=== PATIENT | male | born 1940 | race Hispanic/Latino ===

== ENCOUNTER 2019-12-31 17:28 | Inpatient (IN) | payer MEDICARE ==
[~2019-12-31] VITALS: Ht 175.3 cm; Wt 62.1 kg
[~2019-12-31 17:28] MED LIST: ASA81 MG PO; LISINOPRIL-HCT1 EAC3 PO; NITROGLYCERIN; NORCO1 EA PO; Z.0.CLINDAMYCIN HC15; Z.0.DOXEPIN HCL25 MG; Z.0.DOXEPIN HCL25 MG PO; Z.0.GLIMEPIRIDE2 MG PO; Z.0.LOVASTATIN20 MG PO; Z.0.METOPROLOL SUCC2 PO; Z.0.NORCO 10-325 T1; Z.0.PLAVIX75 MG PO
[2019-12-31] MEDS ORDERED: SODIUM CHLORIDE 0.9% 1000ML 1,000 ML IV STA (17:46)
[2019-12-31] MEDS ORDERED: ACETAMINOPHEN 325 MG TAB PO NR (18:00)
[2019-12-31] MEDS ORDERED: CEFTRIAXONE SOD 1 GM/NS 50 ML 50 ML IV ONE (18:00)
[2019-12-31] MEDS ORDERED: ONDANSETRON HCL INJ 2MG/ML 2ML 2 MG/ML VIAL IV NR (18:00)
[2019-12-31] MEDS ORDERED: AZITHROMYCIN 500MG/NS 250 ML 250 ML IV NR (18:00)
[2019-12-31] MEDS: DILTIAZEM HCL 5 MG/ML 5 ML VIAL IV NR ×2 (18:04→18:27)
[2019-12-31 18:05] LABS: BASOPHILS % 0.8 % (0.0-1.0); EOSINOPHILS % 0.8 % (0.0-6.0); HEMOGLOBIN 11.2 g/dL (14.0-18.0); LYMPHOCYTES # (AUTO) 0.7 (1.0-3.2); MEAN CORPUSCULAR HEMOGLOBIN 25.5 pg (28-32); MEAN CORPUSCULAR HGB CONC 32.9 g/dL (31-35); MEAN CORPUSCULAR VOLUME 77.4 fL (81-99); MONOCYTES # (AUTO) 0.6 (0.2-0.8); MONOCYTES % 14.7 % (4.4-11.3); NEUTROPHILS # (AUTO) 2.6 (2.1-6.9); NEUTROPHILS % 65.4 % (38.7-80.0); PLATELET COUNT 299 x10e3/uL (140-360); RED BLOOD COUNT 4.39 x10e6/uL (4.3-5.7); RED CELL DISTRIBUTION WIDTH 14.7 % (11.7-14.4)
[2019-12-31 18:26] LABS: ALANINE AMINOTRANSFERASE 119 IU/L (0-55); ALBUMIN 3.8 g/dL (3.5-5.0); ALBUMIN/GLOBULIN RATIO 1.1 (0.8-2.0); ALKALINE PHOSPHATASE 79 IU/L (40-150); BLOOD UREA NITROGEN 9 mg/dL (7-26); BUN/CREATININE RATIO 10 (6-25); CALCIUM 8.8 mg/dL (8.4-10.2); CARBON DIOXIDE 19 mmol/L (22-29); CHLORIDE 91 mmol/L (98-107); CREATINE KINASE 148 IU/L (30-200); CREATININE, SERUM 0.91 mg/dL (0.72-1.25); EST GLOMERULAR FILTRATION RATE > 60 ML/MIN (60-); GLUCOSE 125 mg/dL (74-118); SODIUM 121 mmol/L (136-145)
--- NOTE | 2019-12-31 18:29 | Diagnostic Imaging Report ---
EXAMINATION: CHEST SINGLE (PORTABLE) INDICATION: Flulike symptom. ^ERMD ORDER ^Y COMPARISON: None FINDINGS: TUBES and LINES: None. LUNGS: Perihilar peribronchial hazy opacity could be due to bronchitis. No consolidative pneumonia. PLEURA: No pleural effusion or pneumothorax. HEART AND MEDIASTINUM: The cardiomediastinal silhouette is unremarkable. BONES AND SOFT TISSUES: No acute osseous lesion. Soft tissues are unremarkable. UPPER ABDOMEN: No free air under the diaphragm. IMPRESSION: Perihilar peribronchial hazy opacity could be due to bronchitis. No consolidative pneumonia. Signed by: Dr. Troy Mcleod M.D. on 12/31/2019 6:26 PM
[2019-12-31 18:34] LABS: B-TYPE NATRIURETIC PEPTIDE2 353.4 pg/mL (0-100)
[2019-12-31] MEDS ORDERED: DILTIAZEM HCL 5 MG/ML 5 ML VIAL IV NR (18:45)
[2019-12-31] MEDS ORDERED: AMIODARONE HCL 360MG 200 ML IV SCH (19:00)
[2019-12-31] MEDS ORDERED: AMIODARONE HCL 150MG 100 ML IV NR (19:00)
[2019-12-31] MEDS ORDERED: AMIODARONE HCL 900 MG in DEXTROSE 5 % 500ML BOTTLE 500 ML IV ONE (19:00)
[2019-12-31] MEDS ORDERED: ONDANSETRON HCL INJ 2MG/ML 2ML 2 MG/ML VIAL IV PRN (20:00)
[2019-12-31] MEDS ORDERED: SODIUM CHLORIDE FLUSH 10 ML SYR INJ PRN (20:00)
[2019-12-31] MEDS: CEFTRIAXONE SOD 1 GM/NS 50 ML 50 ML IV SCH (20:23)
[2019-12-31] MEDS ORDERED: SODIUM CHLORIDE 0.9% 1000ML 1,000 ML IV ONE (20:45)
[2019-12-31] MEDS: AZITHROMYCIN 500MG/NS 250 ML 250 ML IV SCH (21:30)
[2019-12-31] MEDS ORDERED: DEXTROSE 50% SYRINGE 50 ML IV PRN (22:15)
[2019-12-31] MEDS: OSELTAMIVIR PHOSPHATE 75 MG CAP PO SCH (22:35)
[2019-12-31 23:27] VITALS: BP 120/72
--- NOTE | 2019-12-31 23:37 | NUR ---
patient came from ER awake alert oriented. no distress noted, vitals checked. Amiodarone running through iV left AC. nurse put another IV line to left Forearm size 20 g for Iv fluids, patient tolerated well. blood sugar checked its 120 at this time. on bed side. bed alarm is on, he has history of fall at home today due to weakness feeling. noted skin tear to left upper arm and its wrapped with elastic dressing from ER. will continue to monitor.
[2019-12-31 23:40] VITALS: BP 120/72
[2020-01-01] VITALS (27 sets, daily range): BP systolic 86–197; BP diastolic 32–121
[2020-01-01] MEDS ORDERED: AMIODARONE HCL 360MG 200 ML IV SCH
--- NOTE | 2020-01-01 01:45 | NUR ---
amiodarone drip adjusted to 16cc/hr (after 6 hr from it started) as ordered.
--- NOTE | 2020-01-01 01:56 | NUR ---
draw blood for cardiac markers, and sent sample to lab.
[2020-01-01 02:38] LABS: CREATINE KINASE MB 3.3 ng/mL (0-5.0)
[2020-01-01 04:41] LABS: BASOPHILS % 0.5 % (0.0-1.0); EOSINOPHILS % 0.3 % (0.0-6.0); HEMATOCRIT 32.5 % (38.2-49.6); HEMOGLOBIN 10.5 g/dL (14.0-18.0); LYMPHOCYTES % 25.6 % (18.0-39.1); MEAN CORPUSCULAR HEMOGLOBIN 25.4 pg (28-32); MEAN CORPUSCULAR HGB CONC 32.3 g/dL (31-35); MEAN CORPUSCULAR VOLUME 78.5 fL (81-99); MONOCYTES # (AUTO) 0.7 (0.2-0.8); MONOCYTES % 16.3 % (4.4-11.3); NEUTROPHILS # (AUTO) 2.3 (2.1-6.9); NEUTROPHILS % 56.8 % (38.7-80.0); PLATELET COUNT 291 x10e3/uL (140-360); RED BLOOD COUNT 4.14 x10e6/uL (4.3-5.7); RED CELL DISTRIBUTION WIDTH 14.9 % (11.7-14.4)
[2020-01-01 05:04] LABS: ALANINE AMINOTRANSFERASE 96 IU/L (0-55); ALKALINE PHOSPHATASE 63 IU/L (40-150); ANION GAP 13.2 mmol/L (8-16); BLOOD UREA NITROGEN 8 mg/dL (7-26); BUN/CREATININE RATIO 10 (6-25); CARBON DIOXIDE 22 mmol/L (22-29); CHLORIDE 98 mmol/L (98-107); CHOL/HDL RATIO 2.6 (3.9-4.7); CHOLESTEROL 100 MD/DL (0-199); CREATININE, SERUM 0.83 mg/dL (0.72-1.25); EST GLOMERULAR FILTRATION RATE > 60 ML/MIN (60-); GLUCOSE 130 mg/dL (74-118); HDL CHOLESTEROL 38 MG/DL (40-60); LDL CHOLESTEROL 47 MG/DL (60-130); POTASSIUM 4.2 mmol/L (3.5-5.1); TRIGLYCERIDES 74 MG/DL (0-149)
[2020-01-01 05:20] LABS: SODIUM 129 mmol/L (136-145)
[2020-01-01] MEDS: HYDROCODONE/APAP 10MG-325MG TAB PO PRN ×2 (05:27→09:35)
[2020-01-01] MEDS ORDERED: HYDROCODONE/APAP 10MG-325MG TAB ONE (05:30)
[2020-01-01] MEDS: CLONIDINE HCL 0.1 MG TAB PO PRN (06:37)
[2020-01-01] MEDS: METOPROLOL SUCCINATE 25 MG TAB XL PO SCH ×2 (08:03→16:31)
[2020-01-01] MEDS: OSELTAMIVIR PHOSPHATE 75 MG CAP PO SCH ×2 (08:03→16:30)
[2020-01-01] MEDS: CLOPIDOGREL BISULFATE 75 MG TAB PO SCH (08:03)
[2020-01-01] MEDS: INSULIN REGULAR, HUMAN 100 UNIT/1 ML 3ML VIAL SQ SCH ×4 (08:05→21:26)
[2020-01-01] MEDS: BACITRACIN/POLYMYXIN 30 GM OINT TP SCH (09:00)
[2020-01-01 12:24] LABS: CREATINE KINASE MB 2.3 ng/mL (0-5.0)
--- NOTE | 2020-01-01 13:23 | NUR ---
WOUND CARE CONSULT FOR TREATMENT RECOMMENDATIONS FOR RIGHT ARM SKIN TEAR MEASURING 6CM X4CM X.1CM LOOSE SKIN MOISTENED WITH SALINE AND SPREAD OVER 90% OF WOUND BED SECURED WITH SKIN ADHESIVE AND TEGADERM RECOMMEND LEAVING TEGADERM IN PLACE FOR SKIN READHERENCE Addendum: 01/01/20 at 1328 by Vimal Charles RN Amended: Links added.
[2020-01-01] MEDS: AMIODARONE HCL 200 MG TAB PO SCH (16:30)
[2020-01-01] MEDS: AZITHROMYCIN 500MG/NS 250 ML 250 ML IV SCH (19:54)
[2020-01-01] MEDS: CEFTRIAXONE SOD 1 GM/NS 50 ML 50 ML IV SCH (19:54)
[2020-01-02] VITALS (17 sets, daily range): BP systolic 122–190; BP diastolic 52–107
--- NOTE | 2020-01-02 00:12 | Consultation ---
DATE OF CONSULTATION: 01/01/2020 Cardiology Consultation HISTORY OF PRESENT ILLNESS: This is a 79-year-old man with a history of peripheral arterial disease with amputation, carotid artery disease, status post endarterectomy, coronary artery disease, gastroesophageal reflux disease, hypertension, hyperlipidemia, who presented to the emergency department with fever, cough, weakness, dizziness, and fall. The patient was found to have influenza and atrial fibrillation with rapid ventricular response. The patient has no prior history of atrial fibrillation. REVIEW OF SYSTEMS: A 12-point review of system was conducted, is negative except as stated above in the HPI. PAST MEDICAL HISTORY: As stated above in the HPI. PAST SURGICAL HISTORY: Amputation, carotid endarterectomy. PAST FAMILY HISTORY: Noncontributory to present illness. SOCIAL HISTORY: Tobacco use. ALLERGIES: SULFA AND HYDROMORPHONE. MEDICATIONS: See medication reconciliation form. PHYSICAL EXAMINATION: VITAL SIGNS: Temperature is 98.2, heart rate is 60, respirations are 22, blood pressure is 137/68, ox saturation 100% on room air. GENERAL: Well-appearing, well-built, no apparent distress, alert, oriented x3. HEAD: Normocephalic, atraumatic. EYES: Extraocular muscles are intact. Conjunctivae clear. NECK: No JVD. No bruits. CARDIOVASCULAR: Regular rate and rhythm. No murmurs. LUNGS: Clear to auscultation. ABDOMEN: Soft, nontender, nondistended. EXTREMITIES: No clubbing, cyanosis or edema. VASCULAR: 2+ pulses. SKIN: Warm, dry and intact. NEUROLOGIC: No focal deficits noted. LABORATORY DATA: Reviewed. He is positive for influenza A. Creatinine is 0.83. Sodium 129, potassium 4.2, AST 71, ALT is 96. Troponins negative x4. BNP is 354. A 12-lead electrocardiogram showed atrial fibrillation with rapid ventricular response with nonspecific ST-T wave abnormalities. Chest x-ray showed perihilar and peribronchial hazy opacities due to bronchitis. IMPRESSION: 1. Influenza. 2. Atrial fibrillation with right ventricular response, currently in normal sinus rhythm. 3. Hypertension. 4. Hyperlipidemia. 5. Peripheral artery disease. 6. Coronary artery disease. RECOMMENDATIONS: The patient has converted to normal sinus rhythm with amiodarone infusion. We will car changer to oral amiodarone to 200 mg p.o. b.i.d. Continue metoprolol succinate 25 mg b.i.d. for rate control as well. He is on clopidogrel. The patient states he has bleeding episodes. Would warrant anticoagulation. We will rediscuss with family and primary team. We will check a 2D echocardiogram. Continue to monitor his laboratory values. DO SEBASTIEN Mcfarlane/EDUARDO /[id number]
[2020-01-02] MEDS ORDERED: LEVALBUTEROL HCL SOLN NEBU 0.63 MG/3 ML NEB INH PRN (04:00)
--- NOTE | 2020-01-02 06:22 | NUR ---
around 0300 PT c/o SOB, desaturating as low as 85%, placed pt on weinberg mask, notified MD. Pop ordered. Oxygen sat came up to 97%, pt denies any SOB. stable will continue to monitor
[2020-01-02] MEDS: INSULIN REGULAR, HUMAN 100 UNIT/1 ML 3ML VIAL SQ SCH ×4 (07:36→20:40)
[2020-01-02] MEDS: OSELTAMIVIR PHOSPHATE 75 MG CAP PO SCH ×2 (08:15→16:32)
[2020-01-02] MEDS: AMIODARONE HCL 200 MG TAB PO SCH ×2 (08:15→16:32)
[2020-01-02] MEDS: CLOPIDOGREL BISULFATE 75 MG TAB PO SCH (08:15)
[2020-01-02] MEDS: BACITRACIN/POLYMYXIN 30 GM OINT TP SCH (08:15)
[2020-01-02] MEDS: METOPROLOL SUCCINATE 25 MG TAB XL PO SCH ×2 (08:15→18:00)
[2020-01-02 09:17] LABS: BASOPHILS % 0.5 % (0.0-1.0); EOSINOPHILS % 0.3 % (0.0-6.0); HEMATOCRIT 32.8 % (38.2-49.6); HEMOGLOBIN 10.5 g/dL (14.0-18.0); LYMPHOCYTES # (AUTO) 0.8 (1.0-3.2); LYMPHOCYTES % 21.2 % (18.0-39.1); MEAN CORPUSCULAR HEMOGLOBIN 25.7 pg (28-32); MEAN CORPUSCULAR VOLUME 80.4 fL (81-99); MONOCYTES # (AUTO) 0.4 (0.2-0.8); MONOCYTES % 9.4 % (4.4-11.3); NEUTROPHILS # (AUTO) 2.6 (2.1-6.9); NEUTROPHILS % 67.8 % (38.7-80.0); PLATELET COUNT 264 x10e3/uL (140-360); RED BLOOD COUNT 4.08 x10e6/uL (4.3-5.7); RED CELL DISTRIBUTION WIDTH 15.1 % (11.7-14.4)
[2020-01-02 09:38] LABS: ANION GAP 14.2 mmol/L (8-16); BLOOD UREA NITROGEN 10 mg/dL (7-26); BUN/CREATININE RATIO 11 (6-25); CARBON DIOXIDE 20 mmol/L (22-29); CHLORIDE 95 mmol/L (98-107); CREATININE, SERUM 0.95 mg/dL (0.72-1.25); EST GLOMERULAR FILTRATION RATE > 60 ML/MIN (60-); GLUCOSE 229 mg/dL (74-118); POTASSIUM 4.2 mmol/L (3.5-5.1); SODIUM 125 mmol/L (136-145)
[2020-01-02] MEDS: CLONIDINE HCL 0.1 MG TAB PO PRN (09:43)
--- NOTE | 2020-01-02 09:48 | Progress Note ---
DATE: 01/02/2020 SUBJECTIVE: The patient is a 79-year-old gentleman who came in with atrial fibrillation with rapid ventricular response, flu, bronchitis. The patient is currently off his amiodarone drip, he is on amiodarone p.o. He is on the last Tamiflu. Currently, wants to get out of bed. No chest pain. No shortness of breath. He did have some desats yesterday. Xopenex was started. The patient is currently feeling better and wants to get out of bed again. PHYSICAL EXAMINATION: VITAL SIGNS: Temperature 98.0, pulse of 64, respirations of 22, blood pressure is 179/69, pulse oximetry of 95%. HEENT: Normocephalic and atraumatic. Pupils are reactive to light and accommodation. CVS: S1 and S2 normal. ABDOMEN: Nontender. LUNGS: Decreased air entry in all lung velez. Positive for inspiratory wheezes. EXTREMITIES: Left AKA, the patient has decreased pulses on the right lower extremity. MEDICATIONS: 1. Insulin. 2. . 3. Azithromycin. 4. Ceftriaxone. 5. Metoprolol twice a day. 6. Amiodarone twice a day. 7. Tamiflu 75 mg twice a day. 8. Zofran 4 mg as needed. 9. Hydrocodone as needed. 10. Clonidine 0.1 mg as needed. LABORATORY VALUES: The patient's white count yesterday was 3.98. Chemistries; glucose is running 112. Troponins have been trended to be negative. The patient's last sodium was 129. We will go ahead and recheck that today. ASSESSMENT: 1. Flu, bronchitis. 2. Atrial fibrillation with RVR. 3. Hyponatremia. 4. History of peripheral artery disease. 5. History of hypertension. 6. History of diabetes mellitus. 7. The patient also has leukopenia. PLAN: Continue with amiodarone. The patient will be assisted with physical therapy for rehabilitation. Xopenex treatment. Continue monitoring telemetry. The patient can be switched from ICU to IMCU. Further recommendation per clinical course. We will continue to monitor the patient. Lab values will be repeated again. MD YAMINI Jimenez/MODL /[id number]
[2020-01-02] MEDS: SODIUM CHLORIDE 1 GM TAB PO SCH ×2 (10:58→16:32)
[2020-01-02] MEDS: POLYETHYLENE GLYCOL 3350 17 GM PACK PO SCH (16:32)
--- NOTE | 2020-01-02 18:04 | NUR ---
Per Dr. José orders given to transfer pt to [facility] with telemetry, and ordered PT favian. informed of patient's low sodium. Orders given. informed that patient's family reports lack of bowel movement for a week, per pt he does not recall when last bowel movement was. Orders given. Physical therapy worked with patient, now currently pt is sitting in chair. Will continue to monitor.
[2020-01-02] MEDS: AZITHROMYCIN 500MG/NS 250 ML 250 ML IV SCH (20:09)
[2020-01-02] MEDS: CEFTRIAXONE SOD 1 GM/NS 50 ML 50 ML IV SCH (20:09)
[2020-01-03] VITALS (9 sets, daily range): BP systolic 118–175; BP diastolic 55–97
[2020-01-03] MEDS: CLONIDINE HCL 0.1 MG TAB PO PRN ×2 (00:18→21:13)
[2020-01-03 05:47] LABS: ANION GAP 12.1 mmol/L (8-16); BLOOD UREA NITROGEN 10 mg/dL (7-26); BUN/CREATININE RATIO 12 (6-25); CALCIUM 7.8 mg/dL (8.4-10.2); CARBON DIOXIDE 20 mmol/L (22-29); CHLORIDE 100 mmol/L (98-107); CREATININE, SERUM 0.81 mg/dL (0.72-1.25); EST GLOMERULAR FILTRATION RATE > 60 ML/MIN (60-); GLUCOSE 106 mg/dL (74-118); POTASSIUM 4.1 mmol/L (3.5-5.1); SODIUM 128 mmol/L (136-145)
[2020-01-03] MEDS: INSULIN REGULAR, HUMAN 100 UNIT/1 ML 3ML VIAL SQ SCH ×4 (07:30→20:44)
[2020-01-03] MEDS: CLOPIDOGREL BISULFATE 75 MG TAB PO SCH (08:04)
[2020-01-03] MEDS: OSELTAMIVIR PHOSPHATE 75 MG CAP PO SCH ×2 (08:04→17:00)
[2020-01-03] MEDS: POLYETHYLENE GLYCOL 3350 17 GM PACK PO SCH (08:04)
[2020-01-03] MEDS: AMIODARONE HCL 200 MG TAB PO SCH ×2 (08:04→17:29)
[2020-01-03] MEDS: METOPROLOL SUCCINATE 25 MG TAB XL PO SCH ×2 (08:04→17:29)
[2020-01-03] MEDS: SODIUM CHLORIDE 1 GM TAB PO SCH ×2 (08:04→17:29)
[2020-01-03] MEDS: BACITRACIN/POLYMYXIN 30 GM OINT TP SCH (08:05)
--- NOTE | 2020-01-03 11:18 | Progress Note ---
DATE: 01/03/2020 SUBJECTIVE: A 79-year-old male, who came in with atrial fibrillation with RVR, bronchitis, influenza A pneumonia. The patient is currently feeling better and wants to go home. No chest pain. No shortness of breath. Yesterday, the patient's sodium was 125. Salt tablets were given. OBJECTIVE: VITAL SIGNS: Temperature is 98.1, T-max at 01/03/2020 was 99.2, pulse of 66, respirations of 22, pulse ox of 99%. HEENT: Normocephalic and atraumatic. Pupils are reactive to light and accommodation. CVS: S1 and S2 normal. Regular rate and rhythm. ABDOMEN: Nontender, nondistended. EXTREMITIES: No clubbing, no cyanosis, and/or no edema. The patient has a right AKA. LABORATORY DATA: Sodium is 128 this morning. ASSESSMENT: 1. Flu bronchitis. 2. Atrial fibrillation with rapid ventricular rate. 3. Hyponatremia. 4. History of peripheral artery disease. 5. History of hypertension and diabetes mellitus and leukopenia. Again, the patient's white count yesterday was 3.82, and chemistry showed a sodium of 128. PLAN: Move to Med/Surg. Continue monitoring the patient. Medicines reviewed. Further recommendation per clinical course. Continue with telemonitoring. MD YAMINI Jimenez/ALLIL /[id number]
--- NOTE | 2020-01-03 12:00 | NUR ---
Pt transferred to medical surgical room 295 with telemetry. Report given to Edwin MARTINEZ. Pt does not appear to be in any distress at this time.
--- NOTE | 2020-01-03 13:01 | NUR ---
PATIENT RECEIVED FROM ICU PER WHEEL CHAIR. ALERT AND VERBALLY RESPONSIVE. DENIED PAIN AT THIS TIME. TELEMETRY B[address] ON ISOLATION FOR FLU. IN BED WITH CALL LIGHT AT REACH.
--- NOTE | 2020-01-03 15:34 | NUR ---
PATIENT IN BED RESTING WITH NO S/S OF DISTRESS. ALL PERSONAL ITEMS CLOSE TO PATIENT. CALL LIGHT AT REACH.
[2020-01-03] MEDS ORDERED: SODIUM CHLORIDE 0.9% 250ML 250 ML ONE (19:16)
[2020-01-03] MEDS: CEFTRIAXONE SOD 1 GM/NS 50 ML 50 ML IV SCH (19:59)
[2020-01-03] MEDS: AZITHROMYCIN 500MG/NS 250 ML 250 ML IV SCH (20:37)
--- NOTE | 2020-01-04 00:40 | Progress Note ---
DATE: 01/03/2020 Cardiology Progress Note SUBJECTIVE: No major events overnight. OBJECTIVE: VITAL SIGNS: Temperature afebrile, pulse 62, respiratory rate 18, blood pressure 175/70, saturating 95% on 2 L nasal cannula. GENERAL: Elderly man, well developed, well nourished, no acute distress. CARDIOVASCULAR: Regular rate and rhythm. No murmurs, rubs, or gallops. LUNGS: Clear to auscultation anteriorly. ABDOMEN: Soft, nontender, nondistended. NEURO AND PSYCH: Alert and oriented to person, place, and time. Normal affect. EXTREMITIES: Warm and well perfused. No ulcerations. No edema. INPATIENT MEDICATIONS: Reviewed. LABORATORY DATA: Reviewed. TELEMETRY DATA: Reviewed, shows normal sinus rhythm. Telemetry has been discontinued as of today. ASSESSMENT AND PLAN: 1. Influenza. 2. Atrial fibrillation with rapid ventricular response, currently back in normal sinus rhythm. 3. Hypertension. 4. Hyperlipidemia. 5. Peripheral arterial disease. 6. Coronary artery disease. RECOMMENDATION: The patient is now converted to sinus rhythm with IV amiodarone converted to p.o. amiodarone. Continue metoprolol 25 mg. Echocardiogram final results are pending. The patient will need therapeutic anticoagulation for atrial fibrillation. Recommend apixaban 2.5 mg b.i.d. No acute bleeding issues. Thank you for this consult. We will continue to follow. MD LEONCIO EscamillaP/MODL /[id number]
[2020-01-04 04:12] VITALS: BP 150/67
[2020-01-04 06:49] LABS: ALANINE AMINOTRANSFERASE 52 IU/L (0-55); ALBUMIN 2.8 g/dL (3.5-5.0); ALBUMIN/GLOBULIN RATIO 0.9 (0.8-2.0); ALKALINE PHOSPHATASE 55 IU/L (40-150); ANION GAP 13.4 mmol/L (8-16); BLOOD UREA NITROGEN 8 mg/dL (7-26); BUN/CREATININE RATIO 10 (6-25); CALCIUM 7.8 mg/dL (8.4-10.2); CARBON DIOXIDE 21 mmol/L (22-29); CHLORIDE 100 mmol/L (98-107); CREATININE, SERUM 0.77 mg/dL (0.72-1.25); EST GLOMERULAR FILTRATION RATE > 60 ML/MIN (60-); GLUCOSE 91 mg/dL (74-118); MAGNESIUM 1.9 MG/DL (1.3-2.1); POTASSIUM 4.4 mmol/L (3.5-5.1); SODIUM 130 mmol/L (136-145)
--- NOTE | 2020-01-04 07:04 | NUR ---
Bedside report and waling rounds completed with oncoming nurse. Patient in bed resting with call light within reach. No issues or distress noted.
--- NOTE | 2020-01-04 07:15 | NUR ---
PATIENT OUT OF BED TO ELECTRICAL CHAIR WATCHING TV, NO DISTRESS NOTED. CALL LIGHT AT REACH.
[2020-01-04] MEDS: INSULIN REGULAR, HUMAN 100 UNIT/1 ML 3ML VIAL SQ SCH ×2 (07:30→11:30)
[2020-01-04 07:56] VITALS: BP 186/79
[2020-01-04 08:00] VITALS: BP 186/79
[2020-01-04] MEDS: AMIODARONE HCL 200 MG TAB PO SCH (09:33)
[2020-01-04] MEDS: POLYETHYLENE GLYCOL 3350 17 GM PACK PO SCH (09:33)
[2020-01-04] MEDS: CLOPIDOGREL BISULFATE 75 MG TAB PO SCH (09:33)
[2020-01-04] MEDS: SODIUM CHLORIDE 1 GM TAB PO SCH (09:33)
[2020-01-04] MEDS: OSELTAMIVIR PHOSPHATE 75 MG CAP PO SCH (09:33)
[2020-01-04] MEDS: METOPROLOL SUCCINATE 25 MG TAB XL PO SCH (09:34)
--- NOTE | 2020-01-04 11:07 | NUR ---
PATIENT C/O COLD, WARM BLANKET PROVIDED. IN CHAIR WITH CALL LIGHT AT REACH.
[2020-01-04 12:00] VITALS: BP 189/83
[2020-01-04] MEDS: BACITRACIN/POLYMYXIN 30 GM OINT TP SCH (12:00)
[2020-01-04] MEDS: CLONIDINE HCL 0.1 MG TAB PO PRN (13:00)
--- NOTE | 2020-01-04 14:07 | NUR ---
PATIENT NOTED WITH B/P OF 189/83. PRN CLONIDINE GIVEN. B/P RECHECKED WITH THE READING OF 155/72. WILL CLOSELY MONITOR.
--- NOTE | 2020-01-04 15:44 | Progress Note ---
DATE: 01/04/2020 Cardiology Progress Note SUBJECTIVE: The patient denies chest pain or shortness of breath. OBJECTIVE: VITAL SIGNS: Temperature 97.2 degrees, pulse 65, respiratory rate 20, blood pressure 186/79, and oxygen saturation 95% on room air. GENERAL: Awake, alert, elderly man, in no acute distress. LUNGS: Clear to auscultation bilaterally. No wheezes or crackles. CARDIOVASCULAR: Normal rate, regular rhythm. No murmur. Normal S1 and S2. ABDOMEN: Soft and nontender. EXTREMITIES: No edema. Left AKA. CARDIAC MEDICATIONS: 1. Metoprolol succinate 25 mg p.o. b.i.d. 2. Amiodarone 200 mg p.o. b.i.d. 3. Plavix 75 mg p.o. daily. LABORATORY DATA: Sodium 130, potassium 4.4, chloride 100, CO2 of 21, BUN 8, and creatinine 0.77. TELEMETRY: Normal sinus rhythm. IMPRESSION: 1. Influenza. 2. Atrial fibrillation with rapid ventricular response, currently sinus rhythm. 3. Hypertension. 4. Hyperlipidemia. 5. Peripheral arterial disease. 6. Coronary artery disease. RECOMMENDATIONS: Continue current cardiac medications. Monitor the patient closely on telemetry. Start the patient on Eliquis. Resume his home lisinopril given poor blood pressure control. Thank you for this consult. We will continue to follow. Sarah Nash MD ABS/MODL /[id number]
[2020-01-04 16:00] VITALS: BP 135/62
--- NOTE | 2020-01-04 16:30 | NUR ---
PATIENT DISCHARGED HOME. DISCHARGE INSTRUCTIONS, AND FOLLOW UP GIVEN TO PATIENT, HE VERBALIZED UNDERSTANDING. IV TO LEFT AC AND LEFT FOREARM REMOVED WITH TIP INTACT. ALL PERSONAL ITEMS TAKEN WITH PATIENT. LEFT UNIT PER WHEEL CHAIR TO FRONT LOBBY IN STABLE CONDITION
[2020-01-04] MEDS ORDERED: APIXABAN 5 MG TABLET PO SCH (17:00)
[2020-01-05] MEDS ORDERED: LISINOPRIL 20 MG TAB PO SCH (09:00)
--- NOTE | 2020-01-10 01:25 | Discharge Summary ---
DISCHARGE DIAGNOSES: 1. Influenza A. 2. Atrial fibrillation with rapid ventricular response. 3. Hyponatremia. 4. Diabetes. 5. Hypertension. HISTORY OF PRESENT ILLNESS: The patient is a gentleman, who presented with upper respiratory symptoms, was found to have influenza A. While in the emergency room atrial fibrillation with RVR, which required him to go to the ICU for amiodarone drip, which he converted very quickly to normal sinus rhythm. He was seen by Cardiology. He was found out to be hyponatremic. Due to the influenza he was placed on appropriate medications and the patient improved significantly each day. At the time of discharge his sodium was near normal. He was still in normal sinus rhythm. He had no further complaints. He wanted to go home. He will follow up in 1-2 weeks with me. Please see hospital chart for full details. MD VENUS Franklin/EDUARDO /[id number]
== END 2020-01-04 16:29 | disposition home or self-care (01) | DRG 193 ==
LOC: ER 17:28 → ERHOLD 20:22 → ICU 22:50 → MED/SURG3 01-03 12:58
PROVIDERS: ADMIT Internal Medicine; ATTEND Internal Medicine
DX: J09.X2 Influenza due to identified novel influenza A virus with other respiratory manifestations (principal); J96.01 Acute respiratory failure with hypoxia; E87.1 Hypo-osmolality and hyponatremia; I48.0 Paroxysmal atrial fibrillation; I10 Essential (primary) hypertension; I25.10 Atherosclerotic heart disease of native coronary artery without angina pectoris; E78.5 Hyperlipidemia, unspecified; E11.51 Type 2 diabetes mellitus with diabetic peripheral angiopathy without gangrene; D72.819 Decreased white blood cell count, unspecified; K21.9 Gastro-esophageal reflux disease without esophagitis
CPT/HCPCS: 36415; 71045; 80048; 80053; 80061; 82550; 82553; 82948; 83605; 83735; 83880; 84484; 85025; 87040; 87400; 93005; 93306; 94640; 99284; J0456; J0696; J1817; J2405; J7030; J7050

== ENCOUNTER 2020-05-05 12:43 | Inpatient (IN) | payer MEDICARE ==
[~2020-05-05] VITALS: Ht 170.2 cm; Wt 62.1 kg
[2020-05-05] MEDS ORDERED: PANTOPRAZOLE 40 MG 10ML VIAL IV STA (13:02)
[2020-05-05] MEDS ORDERED: ONDANSETRON HCL INJ 2MG/ML 2ML 2 MG/ML VIAL IV STA (13:02)
[2020-05-05] MEDS ORDERED: SODIUM CHLORIDE 0.9% 1000ML 1,000 ML IV STA (13:02)
[2020-05-05] MEDS ORDERED: DILTIAZEM HCL 5 MG/ML 5 ML VIAL IV STA ×2 (13:02→15:09)
[2020-05-05] MEDS ORDERED: CEFTRIAXONE SOD 1 GM/NS 50 ML 50 ML IV SCH (13:15)
[2020-05-05 13:21] LABS: BASOPHILS % 0.5 % (0.0-1.0); HEMATOCRIT 35.1 % (38.2-49.6); HEMOGLOBIN 10.8 g/dL (14.0-18.0); LYMPHOCYTES # (AUTO) 0.9 (1.0-3.2); LYMPHOCYTES % 22.3 % (18.0-39.1); MEAN CORPUSCULAR HEMOGLOBIN 22.5 pg (28-32); MEAN CORPUSCULAR HGB CONC 30.8 g/dL (31-35); MEAN CORPUSCULAR VOLUME 73.3 fL (81-99); MONOCYTES # (AUTO) 0.6 (0.2-0.8); MONOCYTES % 14.6 % (4.4-11.3); NEUTROPHILS # (AUTO) 2.4 (2.1-6.9); NEUTROPHILS % 61.3 % (38.7-80.0); PLATELET COUNT 337 x10e3/uL (140-360); RED BLOOD COUNT 4.79 x10e6/uL (4.3-5.7); RED CELL DISTRIBUTION WIDTH 16.4 % (11.7-14.4)
[2020-05-05 13:52] LABS: ALANINE AMINOTRANSFERASE 26 IU/L (0-55); ALBUMIN 3.6 g/dL (3.5-5.0); ALBUMIN/GLOBULIN RATIO 0.9 (0.8-2.0); ALKALINE PHOSPHATASE 88 IU/L (40-150); BLOOD UREA NITROGEN 14 mg/dL (7-26); BUN/CREATININE RATIO 12 (6-25); CALCIUM 9.2 mg/dL (8.4-10.2); CARBON DIOXIDE 22 mmol/L (22-29); CHLORIDE 94 mmol/L (98-107); CREATINE KINASE 102 IU/L (30-200); CREATININE, SERUM 1.15 mg/dL (0.72-1.25); EST GLOMERULAR FILTRATION RATE > 60 ML/MIN (60-); GLUCOSE 138 mg/dL (74-118); MAGNESIUM 2.2 MG/DL (1.3-2.1); SODIUM 128 mmol/L (136-145)
[2020-05-05 14:00] LABS: INR 0.85; PROTHROMBIN TIME 12.1 seconds (11.9-14.5)
[2020-05-05] MEDS ORDERED: AZITHROMYCIN 500MG/NS 250 ML 250 ML IV SCH (14:00)
[2020-05-05 14:01] LABS: PARTIAL THROMBOPLASTIN TIME 34.9 seconds (23.8-35.5)
[2020-05-05 14:14] LABS: THYROID STIMULATING HORMONE 3.651 uIU/mL (0.350-4.940)
--- NOTE | 2020-05-05 14:31 | Diagnostic Imaging Report ---
EXAMINATION: CHEST SINGLE (PORTABLE) INDICATION: Cough, shortness of breath COMPARISON: None FINDINGS: LINES/TUBES:None LUNGS:The lungs are well-inflated. No focal consolidation or pulmonary edema. PLEURA:No pleural effusion or pneumothorax. MEDIASTINUM:The cardiomediastinal silhouette appears normal in size and shape. BONES/SOFT TISSUES:No acute osseous injury. ABDOMEN:No free air under the diaphragm. IMPRESSION: No focal pneumonia or pulmonary edema. Signed by: Miya Lopez MD on 05/05/2020 2:27 PM
--- NOTE | 2020-05-05 14:43 | Diagnostic Imaging Report ---
CT BRAIN WO HISTORY: Fever, altered mental status COMPARISON: Report from head CT dated 07/18/2012 Technique: Noncontrast axial scans were obtained from skull base to the vertex. Coronal and sagittal reconstructions obtained from the axial data. One or more of the following dose reduction techniques were used: Automated exposure control, adjustment of the mA and/or kV according to patient size, and/or utilization of iterative reconstruction technique. DISCUSSION: Scalp/Skull: Unremarkable. Brain sulci: Mildly prominent. Ventricles: Compensatory dilatation. Extra-axial spaces: No masses or fluid collections. Carotid siphon calcifications are present. Parenchyma: Focal right parieto-occipital juxtacortical hypodensity involving the right precuneus and cuneus is associated with mild local volume loss; this is compatible with encephalomalacia. Mild bilateral deep white matter hypodensity is likely chronic microvascular ischemic change. Small calcification in the left ecsoto radiata may be from remote infection or inflammation. Otherwise, no masses, hemorrhage, or large vascular territory acute infarct. Dural sinuses: No abnormal densities. Sellar/Suprasellar region: Intact. Skull base: Intact. Incidental findings: Bilateral ocular lens replacement. IMPRESSION: 1. No acute intracranial abnormalities. 2. 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 3. Mild supratentorial chronic microvascular ischemic change. Mild generalized cerebral volume loss. 4. Small left escoto radiata calcification is likely from remote infection or inflammation (i.e. neurocysticercosis). Signed by: Dr. Mark Bullock M.D. on 05/05/2020 2:39 PM
--- NOTE | 2020-05-05 15:09 | Emergency Department Note ---
History of Present Illnes History of Present Illness Chief Complaint: COVID PUI History of Present Illness This is a 79 year old male PATIENTS DAUGHTER STATES THAT PATIENT HAS BEEN AT HOME WITH COMPLAINTS OF WEAKNESS, FEVER, AND SHORTNESS OF BREATH, PATIENTS WAS ADMITTED YESTERDAY TO THE HOSPITAL AND TESTED POSITIVE FOR COVID-19. PATIENT STATES SYMPTOMS HAVE RESOLVED AT THIS TIME. Historian: Patient Arrival Mode: Car Offshoring Manager Required: No Onset (how long ago): day(s) (3) Radiation: Reports non-radiation Severity: moderate Onset quality: gradual Timing of current episode: constant Progression: worsening Chronicity: new Context: Reports recent illness Relieving factors: none Exacerbating factors: none Associated symptoms: Reports denies other symptoms Past Medical/Family History Physician Review I have reviewed the patient's past medical and family history. Any updates have been documented here. Past Medical History Recent Fever: No Clinical Suspicion of Infectio: No New/Unexplained Change in Ment: No Past Medical History: Hypertension, Diabetes, AK, CAD, GERD, Hyperlipedemia Other Medical History: SMOKER AKA CAROTID STENOSIS PAD Other Surgery: LEFT AKA FEMORAL BYPASS LEFT CARTOID ENDOCARDECTOMY Social History Smoking Cessation: Never Smoker Counseling Performed: No Alcohol Use: Occasional Any Illegal Drug Use: No TB Exposure/Symptoms: No Physically hurt or threatened: No Family History Family history of heart diseas: No Other Last Tetanus: UNK Any Pre-Existing Lines (PICC,: No Is patient up to date on immun: Yes Last Flu: UTD Last Pneumovax: UTD Review of Systems Review of Systems Constitutional: Reports as per HPI EENTM: Reports no symptoms Cardiovascular: Denies chest pain Respiratory: Reports cough, Reports dyspnea Gastrointestinal: Reports no symptoms Genitourinary: Reports no symptoms Musculoskeletal: Reports no symptoms Integumentary: Reports no symptoms Neurological: Reports no symptoms Psychological: Reports no symptoms Endocrine: Reports no symptoms Hematological/Lymphatic: Reports no symptoms Physical Exam Related Data Allergies: Coded Allergies: hydromorphone HCl (Verified Allergy, Intermediate, HALLICUNATIONS, 07/18/12) Sulfa(Sulfonamide Antibiotics) (Verified Adverse Reaction, Intermediate, vomitus , 07/19/12) Triage Vital Signs Vital Signs Date Time Temp Pulse Resp B/P (MAP) Pulse Ox O2 Delivery O2 Flow Rate FiO2 05/05/20 12:49 98.5 86 18 162/98 98 Vital signs reviewed: Yes Physical Exam CONSTITUTIONAL Constitutional: Reports well-developed, Reports well-nourished HENT HENT: Reports normocephalic, Reports atraumatic, Reports oropharynx karime ar/moist, Reports nose normal HENT L/R: Reports left ext ear normal, Reports right ext ear normal EYES Eyes: Reports PERRL, Reports conjunctivae normal NECK Neck: Reports ROM normal PULMONARY Pulmonary: Reports other (DECR BS'S BASES) CARDIOVASCULAR Cardiovascular: Reports irregular rhythm, Reports tachycardia GASTROINTESTINAL Abdominal: Reports soft, Reports nontender, Reports bowel sounds normal GENITOURINARY Genitourinary: Reports exam deferred SKIN Skin: Reports warm, Reports dry MUSCULOSKELETAL Musculoskeletal: Reports ROM normal NEUROLOGICAL Neurological: Reports alert, Reports oriented x 3, Reports no gross motor or sensory deficits PSYCHOLOGICAL Psychological: Reports mood/affect normal, Reports judgement normal Results Laboratory Result Diagram: 05/05/20 1307 05/05/20 1307 Laboratory Laboratory Tests Test 05/05/20 13:28 05/05/20 13:07 White Blood Count 3.90 x10e3/uL (4.8-10.8) Red Blood Count 4.79 x10e6/uL (4.3-5.7) Hemoglobin 10.8 g/dL (14.0-18.0) Hematocrit 35.1 % (38.2-49.6) Mean Corpuscular Volume 73.3 fL (81-99) Mean Corpuscular Hemoglobin 22.5 pg (28-32) Mean Corpuscular Hemoglobin Concent 30.8 g/dL (31-35) Red Cell Distribution Width 16.4 % (11.7-14.4) Platelet Count 337 x10e3/uL (140-360) Neutrophils (%) (Auto) 61.3 % (38.7-80.0) Lymphocytes (%) (Auto) 22.3 % (18.0-39.1) Monocytes (%) (Auto) 14.6 % (4.4-11.3) Eosinophils (%) (Auto) 0.0 % (0.0-6.0) Basophils (%) (Auto) 0.5 % (0.0-1.0) Neutrophils # (Auto) 2.4 (2.1-6.9) Lymphocytes # (Auto) 0.9 (1.0-3.2) Monocytes # (Auto) 0.6 (0.2-0.8) Eosinophils # (Auto) 0.0 (0.0-0.4) Basophils # (Auto) 0.0 (0.0-0.1) Absolute Immature Granulocyte (auto 0.05 x10e3/uL (0-0.1) Prothrombin Time 12.1 seconds (11.9-14.5) Prothromb Time International Ratio 0.85 Activated Partial Thromboplast Time 34.9 seconds (23.8-35.5) Sodium Level 128 mmol/L (136-145) Potassium Level 4.0 mmol/L (3.5-5.1) Chloride Level 94 mmol/L (98-107) Carbon Dioxide Level 22 mmol/L (22-29) Anion Gap 16.0 mmol/L (8-16) Blood Urea Nitrogen 14 mg/dL (7-26) Creatinine 1.15 mg/dL (0.72-1.25) Estimat Glomerular Filtration Rate > 60 ML/MIN (60-) BUN/Creatinine Ratio 12 (6-25) Glucose Level 138 mg/dL (74-118) Calcium Level 9.2 mg/dL (8.4-10.2) Magnesium Level 2.2 MG/DL (1.3-2.1) Total Bilirubin 0.3 mg/dL (0.2-1.2) Aspartate Amino Transf (AST/SGOT) 36 IU/L (5-34) Alanine Aminotransferase (ALT/SGPT) 26 IU/L (0-55) Alkaline Phosphatase 88 IU/L (40-150) Creatine Kinase 102 IU/L (30-200) Creatine Kinase MB 2.90 ng/mL (0-5.0) Troponin I 0.196 ng/mL (0-0.300) Total Protein 7.8 g/dL (6.5-8.1) Albumin 3.6 g/dL (3.5-5.0) Globulin 4.2 g/dL (2.3-3.5) Albumin/Globulin Ratio 0.9 (0.8-2.0) Thyroid Stimulating Hormone (TSH) 3.651 uIU/mL (0.350-4.940) Lab results reviewed: Yes Imaging Imaging results reviewed: Yes Impressions XAMINATION: CHEST SINGLE (PORTABLE) INDICATION: Cough, shortness of breath COMPARISON: None FINDINGS: LINES/TUBES:None LUNGS:The lungs are well-inflated. No focal consolidation or pulmonary edema. PLEURA:No pleural effusion or pneumothorax. MEDIASTINUM:The cardiomediastinal silhouette appears normal in size and shape. BONES/SOFT TISSUES:No acute osseous injury. ABDOMEN:No free air under the diaphragm. IMPRESSION: No focal pneumonia or pulmonary edema. Signed by: Miya Lopez MD on 05/05/2020 2:[address] BRAIN WO HISTORY: Fever, altered mental status COMPARISON: Report from head CT dated 07/18/2012 Technique: Noncontrast axial scans were obtained from skull base to the vertex. Coronal and sagittal reconstructions obtained from the axial data. One or more of the following dose reduction techniques were used: Automated exposure control, adjustment of the mA and/or kV according to patient size, and/or utilization of iterative reconstruction technique. DISCUSSION: Scalp/Skull: Unremarkable. Brain sulci: Mildly prominent. Ventricles: Compensatory dilatation. Extra-axial spaces: No masses or fluid collections. Carotid siphon calcifications are present. Parenchyma: Focal right parieto-occipital juxtacortical hypodensity involving the right precuneus and cuneus is associated with mild local volume loss; this is compatible with encephalomalacia. Mild bilateral deep white matter hypodensity is likely chronic microvascular ischemic change. Small calcification in the left escoto radiata may be from remote infection or inflammation. Otherwise, no masses, hemorrhage, or large vascular territory acute infarct. Dural sinuses: No abnormal densities. Sellar/Suprasellar region: Intact. Skull base: Intact. Incidental findings: Bilateral ocular lens replacement. IMPRESSION: 1. No acute intracranial abnormalities. 2. 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 3. Mild supratentorial chronic microvascular ischemic change. Mild generalized cerebral volume loss. 4. Small left escoto radiata calcification is likely from remote infection or inflammation (i.e. neurocysticercosis). Signed by: Dr. Mark Bullock M.D. on 05/05/2020 2:39 PM Diagnostics Tests Diagnostic test(s) reviewed: Yes Procedures 12 Lead ECG Interpretation ECG Interpretation : ECG: ECG 1 Offshoring Manager: Interpreted by ED physician Date: May 05, 2020 Time: 12:57 Rhythm: atrial fibrillation (WITH RVR) Ectopy: PVC's Rate: tachycardia (151) ST segment flattening: II, III, aVF, V4, V5, V6 Clinical Impression: dysrhythmia - atrial (AFIB RVR) Critical Care Time Total Critical Care Time (min): 35 Critcal care necessary due to: cardiac failuer (NEW ONSET AFIB RVR) Critcal care time spent by me: discussion w consultants, evaluation patient response to tx, examination of patient, order/perform tx or interventions, re- evaluation of patient condition Assessment & Plan Medical Decision Making MDM COUGH, SOB, WEAKNESS, FEVER - CHECK CBC, CHEM, ECG, CARDIACS, PANCX'S, UA, CXR, TSH - EVAL FOR AFIB RVR - CONTROL RATE/ANTICOAGULATE CHECK CT BRAIN PRIOR TO, R/O PNEUMONIA, COVID19, ELECTROLYTE ABNL Reassessment Reassessment HR IMPROVED WITH CARDIZEM Assessment & Plan Final Impression: (1) Atrial fibrillation with RVR (2) Pneumonia (3) Hyponatremia Depart Disposition: ADMITTED Last Vital Signs Date Time Temp Pulse Resp B/P (MAP) Pulse Ox O2 Delivery O2 Flow Rate FiO2 05/05/20 14:22 107 16 140/75 100 05/05/20 12:49 98.5 Home Meds Reported Medications Aspirin (Asa) 81 Mg Tab, 81 MG PO DAILY 07/18/12 Lovastatin (Lovastatin) 20 Mg Tablet, 20 MG PO DAILY 03/24/12 Lisinopril/Hydrochlorothiazide (Lisinopril-Hctz 20-25 Mg Tab) 1 Each Tablet, 20 - 25 MG PO DAILY 03/13/12 Metoprolol Succinate (Metoprolol Succinate) 25 Mg Tab.sr.24h, 25 MG PO BID 03/13/12 Clopidogrel Bisulfate (Plavix) 75 Mg Tablet, 75 MG PO DAILY 03/13/12 Glimepiride (Glimepiride) 2 Mg Tablet, 2 MG PO DAILY 03/13/12 Medications in the ED Pantoprazole Sodium 40 mg ONCE STAT IV Last administered on 05/05/20at 13:49; Admin Dose 40 MG; Start 05/05/20 at 13:02; Stop 05/05/20 at 13:11; Status DC Ondansetron HCl 4 mg ONCE STAT IV Last administered on 05/05/20at 13:49; Admin Dose 4 MG; Start 05/05/20 at 13:02; Stop 05/05/20 at 13:11; Status DC Sodium Chloride 1,000 ml @ 0 mls/hr Q0M STAT IV Last administered on 05/05/20at 13:49; Admin Dose 1,000 MLS/HR; Start 05/05/20 at 13:02; Stop 05/05/20 at 13:07; Status DC Ceftriaxone Sodium 50 ml @ 100 mls/hr Q24H IV Last administered on 05/05/20at 13:49; Admin Dose 100 MLS/HR; Start 05/05/20 at 13:15; Stop 05/12/20 at 13:14 Azithromycin 250 ml @ 200 mls/hr Q24H IV Last administered on 05/05/20at 13:49; Admin Dose 200 MLS/HR; Start 05/05/20 at 14:00; Stop 05/12/20 at 13:59 Diltiazem HCl 10 mg NOW STAT IV Last administered on 05/05/20at 13:49; Admin Dose 10 MG; Start 05/05/20 at 13:02; Stop 05/05/20 at 13:11; Status DC LENO VILCHIS MD May 05, 2020 15:09
[2020-05-05] MEDS ORDERED: ONDANSETRON HCL INJ 2MG/ML 2ML 2 MG/ML VIAL IV PRN (15:15)
[2020-05-05] MEDS ORDERED: ENOXAPARIN SODIUM INJ 100 MG/ML SYR SC SCH (15:15)
[2020-05-05 16:01] LABS: B-TYPE NATRIURETIC PEPTIDE2 445.2 pg/mL (0-100)
[2020-05-05 16:43] LABS: % IRON SATURATION 5 % (15-50); IRON 27 ug/dL (65-175); TOTAL IRON BINDING CAPACITY 522 ug/dL (261-478); TRANSFERRIN 373 mg/dL (174-364)
--- NOTE | 2020-05-05 16:58 | NUR ---
{null, cONSULT 79 y/ o male came with SOB no fever no cough patient had COVID 19 recenly [id number] }
[2020-05-05] MEDS: DILTIAZEM HCL ER 120 MG CAP PO SCH (19:01)
[2020-05-05] MEDS ORDERED: AMIODARONE HCL 150MG 100 ML ONE (19:08)
[2020-05-05] MEDS ORDERED: AMIODARONE HCL 360MG 200 ML IV SCH (19:15)
[2020-05-05] MEDS ORDERED: AMIODARONE HCL 150MG 100 ML IV SCH (19:15)
[2020-05-05] MEDS ORDERED: AMIODARONE HCL 900 MG in DEXTROSE 5 % 500ML BOTTLE 500 ML IV SCH (19:30)
[2020-05-05] MEDS ORDERED: IRON SUCROSE 100 MG in SODIUM CHLORIDE 0.9% 100 ML 100 ML IV SCH (20:00)
--- NOTE | 2020-05-05 20:50 | Consultation ---
DATE OF CONSULTATION: 05/05/2020 REASON FOR CONSULTATION: Possibility of COVID-19 and shortness of breath. HISTORY OF PRESENT ILLNESS: The patient who is a 79-year-old male, who comes into the emergency room with shortness of breath. The patient states his was recently diagnosed with COVID-19. His daughter was concerned about him that he has COVID-19 because he is weak and not feeling well as well shortness of breath. When I saw the patient, he denies any cough or fever. The patient is being evaluated in the emergency room. He was noted to be in atrial fibrillation, so he is being admitted. The patient as mentioned above, denies any cough or fever present time. PAST MEDICAL HISTORY: Hypertension, diabetes mellitus, coronary artery disease, myocardial infarction, GERD, and hyperlipidemia. PAST SURGICAL HISTORY: Left [id number] amputation, femoral bypass, and left carotid endarterectomy. SOCIAL HISTORY: Smoking, but no drug abuse or alcohol abuse. The patient currently does not smoke. REVIEW OF SYSTEMS: HEENT: Negative. PULMONARY: Negative. CARDIAC: Negative. : Negative. SKIN: There are no rashes. LABORATORY DATA: White count 3.9, hemoglobin 10. His COVID-19 is still pending. Sodium 128, potassium 4.0, and creatinine 1.15. His lactic acid was 1.0 with a BNP of 145. A chest x-ray was done and showed he had no focal pneumonia or edema. PHYSICAL EXAMINATION: GENERAL: He is currently alert, oriented, does not seem in acute distress. Afebrile. HEENT: Not icteric. NECK: Supple. No JVD. No carotid bruit. No thyromegaly. CHEST: Clear bilaterally. HEART: S1, S2. No S3. No murmur. Heart rate is irregularly irregular. His heart rate is in 110. ABDOMEN: Soft. Bowel sounds present. No tenderness. EXTREMITIES: No edema. SKIN: No rashes. IMPRESSION AND PLAN: Shortness of breath due to atrial fibrillation. He is being checked for coronavirus disease-19, but he has no fever, no cough. There is no pneumonia. I would suggest to Cardiology evaluation, can discontinue azithromycin, can be discontinued Rocephin. Await coronavirus disease-19; if that came back negative, can be removed droplet isolation. In the meantime, continue to be on droplet isolation. MD QUINTON Montana/EDUARDO /[id number]
[2020-05-05] MEDS: ENOXAPARIN SOD INJ 60 MG/0.6 ML SYR SC SCH (21:55)
[2020-05-05] MEDS: FAMOTIDINE 20 MG/2 ML VIAL IV SCH ×2 (21:55→21:59)
[2020-05-05] MEDS: METOPROLOL TARTRATE 25 MG TAB PO SCH ×2 (21:55→21:58)
--- NOTE | 2020-05-05 23:00 | Consultation ---
DATE OF CONSULTATION: Pulmonary Consultation The patient of Dr. Ray and Dr. Calzada. HISTORY OF PRESENT ILLNESS: Dior 79-year-old gentleman admitted with fever and weakness, which he denies and shortness of breath, apparently brought in by daughter. recently tested positive for COVID-19 and is in hospital. He has no cough. He has a history of hypertension, atrial fibrillation, peripheral vascular disease, and diabetes. ALLERGIES: TO HYDROMORPHONE AND SULFA. MEDICATIONS: Included aspirin, Amaryl, losartan, lisinopril, hydrochlorothiazide, and Plavix. PAST SURGICAL HISTORY: He has undergone a left AK amputation. He has had a left carotid surgery and left femoral-popliteal bypass surgery. SOCIAL HISTORY: Smoked pack-a-day for 60 years and has quit. FAMILY HISTORY: Positive for hypertension and diabetes. His mother works as an dry cleaning machine operator in [employer]. Born in [place]. He is a poor historian. PHYSICAL EXAMINATION: GENERAL: Thin white male, in no acute distress, requesting urinal. VITAL SIGNS: Blood pressure 140/80, temperature 98.5, pulse 86 and irregular, and respirations 16. HEAD: Normocephalic and atraumatic. LUNGS: Clear. HEART: Irregular rhythm. ABDOMEN: Nontender. EXTREMITIES: Left AK amputation noted. IMPRESSION: obvious infiltrates on chest x-ray, likely COVID-19. PLAN: Admit for observation. Pending the COVID study. The patient is anxious to go home. Suggestion of iron deficiency. We will check serum iron levels. Continue home medications. Thank you for this kind referral. MD MACHELLE Russ/MODL /[id number]
[2020-05-06] VITALS (16 sets, daily range): BP systolic 106–179; BP diastolic 55–93
[2020-05-06] MEDS ORDERED: AMIODARONE HCL 360MG 200 ML IV SCH
[2020-05-06 01:44] LABS: CLARITY,URINE CLEAR (CLEAR); COLOR,URINE YELLOW (YELLOW)
[2020-05-06 01:45] LABS: BILIRUBIN,URINE NEGATIVE (NEGATIVE); KETONES,URINE NEGATIVE (NEGATIVE); LEUKOCYTE ESTERASE ,URINE NEGATIVE (NEGATIVE); NITRITE,URINE NEGATIVE (NEGATIVE); PROTEIN,URINE DIPSTICK NEGATIVE (NEGATIVE); URINE UROBILINOGEN 0.2 mg/dL (0.2 - 1)
[2020-05-06 01:48] LABS: ANION GAP 15.1 mmol/L (8-16); BLOOD UREA NITROGEN 10 mg/dL (7-26); BUN/CREATININE RATIO 11 (6-25); CALCIUM 8.6 mg/dL (8.4-10.2); CARBON DIOXIDE 20 mmol/L (22-29); CHLORIDE 101 mmol/L (98-107); CREATININE, SERUM 0.89 mg/dL (0.72-1.25); EST GLOMERULAR FILTRATION RATE > 60 ML/MIN (60-); GLUCOSE 93 mg/dL (74-118); POTASSIUM 4.1 mmol/L (3.5-5.1); SODIUM 132 mmol/L (136-145)
[2020-05-06 02:20] LABS: BASOPHILS % 0.4 % (0.0-1.0); EOSINOPHILS % 0.6 % (0.0-6.0); HEMOGLOBIN 10.2 g/dL (14.0-18.0); LYMPHOCYTES # (AUTO) 1.3 (1.0-3.2); LYMPHOCYTES % 25.4 % (18.0-39.1); MEAN CORPUSCULAR HEMOGLOBIN 22.7 pg (28-32); MEAN CORPUSCULAR HGB CONC 30.9 g/dL (31-35); MEAN CORPUSCULAR VOLUME 73.5 fL (81-99); MONOCYTES # (AUTO) 0.7 (0.2-0.8); MONOCYTES % 12.9 % (4.4-11.3); NEUTROPHILS % 59.5 % (38.7-80.0); PLATELET COUNT 304 x10e3/uL (140-360); RED BLOOD COUNT 4.49 x10e6/uL (4.3-5.7); RED CELL DISTRIBUTION WIDTH 16.4 % (11.7-14.4)
[2020-05-06 02:30] LABS: BACTERIA,URINE FEW /HPF; EPITHELIAL CELLS,URINE RARE /LPF; WBC,URINE (MAN) 0-5 /HPF (0-5)
[2020-05-06] MEDS ORDERED: HYDRALAZINE HCL 20 MG/ML VIAL IV PRN (04:30)
[2020-05-06] MEDS: ENOXAPARIN SOD INJ 60 MG/0.6 ML SYR SC SCH (05:30)
[2020-05-06 06:35] LABS: CREATINE KINASE MB 2.7 ng/mL (0-5.0)
[2020-05-06 06:55] LABS: ALANINE AMINOTRANSFERASE 22 IU/L (0-55); ALBUMIN/GLOBULIN RATIO 0.8 (0.8-2.0); ALKALINE PHOSPHATASE 63 IU/L (40-150); ANION GAP 15.8 mmol/L (8-16); CALCIUM 7.9 mg/dL (8.4-10.2); CARBON DIOXIDE 19 mmol/L (22-29); CHLORIDE 100 mmol/L (98-107); CHOL/HDL RATIO 3.5 (3.9-4.7); CHOLESTEROL 109 MD/DL (0-199); CREATININE, SERUM 0.96 mg/dL (0.72-1.25); EST GLOMERULAR FILTRATION RATE > 60 ML/MIN (60-); GLUCOSE 115 mg/dL (74-118); HDL CHOLESTEROL 31 MG/DL (40-60); LDL CHOLESTEROL 62 MG/DL (60-130); POTASSIUM 3.8 mmol/L (3.5-5.1); SODIUM 131 mmol/L (136-145); TRIGLYCERIDES 79 MG/DL (0-149)
[2020-05-06 07:23] LABS: BLOOD UREA NITROGEN 10 mg/dL (7-26); BUN/CREATININE RATIO 11 (6-25)
--- NOTE | 2020-05-06 07:39 | Diagnostic Imaging Report ---
EXAMINATION: CHEST SINGLE (PORTABLE) INDICATION: ^sob ^[id number] ^0620 COMPARISON: 05/05/2020 FINDINGS: AP view TUBES and LINES: None. LUNGS: Lungs are well inflated. No definite focal consolidations. PLEURA: No pleural effusion or pneumothorax. HEART AND MEDIASTINUM: The cardiomediastinal silhouette is unremarkable. BONES AND SOFT TISSUES: No acute osseous lesion. Soft tissues are unremarkable. UPPER ABDOMEN: No free air under the diaphragm. IMPRESSION: No acute thoracic abnormality. No change from prior exam. Signed by: Dr. Ned Villegas MD on 05/06/2020 7:36 AM
[2020-05-06] MEDS: FAMOTIDINE 20 MG/2 ML VIAL IV SCH (08:23)
[2020-05-06] MEDS: DILTIAZEM HCL ER 120 MG CAP PO SCH (08:23)
[2020-05-06] MEDS: METOPROLOL TARTRATE 25 MG TAB PO SCH (08:25)
[2020-05-06] MEDS ORDERED: CLOPIDOGREL BISULFATE 75 MG TAB PO SCH (09:00)
[2020-05-06] MEDS ORDERED: GLIMEPIRIDE 2 MG TAB PO SCH (09:00)
[2020-05-06] MEDS ORDERED: ASPIRIN 81 MG ENTERIC COATED PO SCH ×2 (09:00)
[2020-05-06] MEDS ORDERED: XARELTO20 MG (14:51)
[2020-05-06] MEDS ORDERED: AMIODARONE HCL200 MG (14:51)
--- NOTE | 2020-05-06 18:24 | Progress Note ---
DATE: SUBJECTIVE: Mr. Keenan is doing much better. REVIEW OF SYSTEMS: HEENT: Negative. PULMONARY: Negative. CARDIAC: Negative. PHYSICAL EXAMINATION: GENERAL: He is currently alert, oriented, does not seem to be in acute distress. VITAL SIGNS: Stable, currently afebrile. HEENT: He is not icteric. NECK: Supple. CHEST: Clear. HEART: S1, S2. No murmur. ABDOMEN: Soft. His heart rate is currently in sinus rhythm. Discussed with Cardiology. Discussed with Internal Medicine. IMPRESSION: 1. COVID-19. 2. Arrhythmia. Discussed with cardiology. It could be due from COVID-19 and he is currently back in sinus rhythm. The patient will be discharged home. Follow up with outpatient to recheck in 2 weeks. MD QUINTON Montana/EDUARDO /[id number]
--- NOTE | 2020-05-07 04:12 | Consultation ---
DATE OF CONSULTATION: 05/06/2020 Cardiology Consult Note REASON FOR CONSULT: Atrial fibrillation with RVR. CHIEF COMPLAINT: Heart racing. HISTORY OF PRESENT ILLNESS: The patient is a 79-year-old man, presents to emergency room with shortness of breath. His was recently diagnosed with COVID-19. Daughter was concerned that he also had COVID-19 due to shortness of breath. She brought him to the ER. The patient denies any coughing or fevers. Upon evaluation in the emergency room, he was seen to be in atrial fibrillation with RVR, was started on IV amiodarone and converted to normal sinus rhythm this morning. COVID-19 test was positive. However, there was no significant pneumonia on chest x-ray. PAST MEDICAL HISTORY: Hypertension, diabetes, CAD, [place], GERD. Hyperlipidemia, and PAD. PAST SURGICAL HISTORY: Left AKA, carotid endarterectomy, and femoral bypass. SOCIAL HISTORY: Former smoker. Does not abuse drugs or alcohol. REVIEW OF SYSTEMS: As per HPI, otherwise negative. OBJECTIVE: VITAL SIGNS: Temperature afebrile, pulse 52, respiratory rate 21, blood pressure 133/61, saturating 100% on room air. GENERAL: Elderly man, in no acute distress. CARDIOVASCULAR: Regular rate and rhythm. No murmurs, rubs, or gallops. LUNGS: Clear to auscultation bilaterally. ABDOMEN: Soft, nontender, and nondistended. NEURO AND PSYCH: Alert and oriented to person, place, and time. Normal affect. INPATIENT MEDICATIONS: Reviewed. LABORATORY DATA: Reviewed. Notable for troponin of 0.366, normal CK and CK-MB. BNP mildly elevated at 445. IMAGING DATA: Reviewed. Chest x-ray shows no acute abnormalities. ASSESSMENT: 1. COVID-19 positive. 2. Atrial fibrillation with rapid ventricular response. PLAN: Echocardiogram reviewed, normal LV function, now converted to sinus rhythm with IV amiodarone. We will change to p.o. amiodarone and Xarelto. Discontinue diltiazem. Continue metoprolol. The patient is okay to be discharged from cardiovascular standpoint. He can follow up in the office once he is COVID negative in 2 weeks. Prescriptions were given. Thank you for this consult. We will continue to follow. Po V Youngblood, MD KVP/ALLIL /[id number]
== END 2020-05-06 16:00 | disposition home or self-care (01) | DRG 177 ==
LOC: ER 12:43 → ERHOLD 15:12 → ICU 05-06 01:10
PROVIDERS: ADMIT Internal Medicine; ATTEND Internal Medicine
PROC: 8E0ZXY6 Isolation (ICD-10-PCS; principal; 2020-05-05)
DX: U07.1 COVID-19 (principal); J12.89 Other viral pneumonia; E87.1 Hypo-osmolality and hyponatremia; I48.91 Unspecified atrial fibrillation; I10 Essential (primary) hypertension; E11.9 Type 2 diabetes mellitus without complications; I25.2 Old myocardial infarction; E78.5 Hyperlipidemia, unspecified; K21.9 Gastro-esophageal reflux disease without esophagitis; F17.210 Nicotine dependence, cigarettes, uncomplicated; Z89.612 Acquired absence of left leg above knee; I25.10 Atherosclerotic heart disease of native coronary artery without angina pectoris; Z88.5 Allergy status to narcotic agent; Z88.2 Allergy status to sulfonamides; D64.9 Anemia, unspecified; Z95.820 Peripheral vascular angioplasty status with implants and grafts
CPT/HCPCS: 36415; 70450; 71045; 80048; 80053; 80061; 81001; 82550; 82553; 83540; 83605; 83735; 83880; 84443; 84466; 84484; 85025; 85610; 85730; 87040; 87086; 87635; 93005; 93306; 96365; 96366; 96374; 99284; J0456; J0696; J1650; J1756; J2405; J7030

== ENCOUNTER → 2021-01-03 | Day surgery (SDC) | payer MEDICARE ==
[2020-12-29 16:21] LABS: BASOPHILS # (AUTO) 0.1 (0.0-0.1); EOSINOPHILS # (AUTO) 0.3 (0.0-0.4); EOSINOPHILS % 3.5 % (0.0-6.0); HEMATOCRIT 31.3 % (38.2-49.6); HEMOGLOBIN 9.7 g/dL (14.0-18.0); LYMPHOCYTES # (AUTO) 1.9 (1.0-3.2); LYMPHOCYTES % 21.2 % (18.0-39.1); MEAN CORPUSCULAR HEMOGLOBIN 25.1 pg (28-32); MEAN CORPUSCULAR VOLUME 81.1 fL (81-99); MONOCYTES # (AUTO) 0.8 (0.2-0.8); NEUTROPHILS # (AUTO) 5.7 (2.1-6.9); NEUTROPHILS % 64.8 % (38.7-80.0); PLATELET COUNT 373 x10e3/uL (140-360); RED BLOOD COUNT 3.86 x10e6/uL (4.3-5.7)
[~2021-01-03] MED LIST changes: +AMIODARONE HCL200 MG; +AMLODIPINE BESY10 MG PO; +ATORVASTATIN CA20 MG PO; +DOK100 MG PO; +DOXAZOSIN MESYLA2 MG PO; +ELIQUIS2.5 MG PO; +FAMOTIDINE20 MG PO; +LYRICA50 MG PO; +MIRTAZAPINE7.5 MG PO; +NEOSTIGMINE 1 MG/ML 10ML VIAL ONE; +XARELTO20 MG
[2021-01-03 13:20] VITALS: BP 169/75
== END | disposition home or self-care (01) ==
LOC: OR 10:38
PROVIDERS: ATTEND Internal Medicine Gastroenterology
DX: K29.50 Unspecified chronic gastritis without bleeding (principal); B96.81 Helicobacter pylori [H. pylori] as the cause of diseases classified elsewhere; K21.00 Gastro-esophageal reflux disease with esophagitis, without bleeding; Z43.1 Encounter for attention to gastrostomy; K44.9 Diaphragmatic hernia without obstruction or gangrene; K59.00 Constipation, unspecified; I10 Essential (primary) hypertension; I25.2 Old myocardial infarction; E11.9 Type 2 diabetes mellitus without complications; I49.1 Atrial premature depolarization; I69.334 Monoplegia of upper limb following cerebral infarction affecting left non-dominant side; F32.9 Major depressive disorder, single episode, unspecified; H91.90 Unspecified hearing loss, unspecified ear; F17.210 Nicotine dependence, cigarettes, uncomplicated; Z88.6 Allergy status to analgesic agent; Z88.2 Allergy status to sulfonamides; Z01.810 Encounter for preprocedural cardiovascular examination; Z01.812 Encounter for preprocedural laboratory examination; Z20.822 Contact with and (suspected) exposure to COVID-19; Z79.02 Long term (current) use of antithrombotics/antiplatelets
CPT/HCPCS: 36415 ×2; 43239; 43247; 82948; 85025; 88305; 88312; 93005; J2710; U0002

== ENCOUNTER 2021-04-14 10:04 | Inpatient (IN) | payer MEDICARE ==
[2021-04-14] VITALS (9 sets, daily range): BP systolic 115–143; BP diastolic 45–63
[~2021-04-14] VITALS: Ht 167.6 cm; Wt 71.2 kg
[~2021-04-14 10:04] MED LIST changes: -NEOSTIGMINE 1 MG/ML 10ML VIAL ONE
[2021-04-14] MEDS ORDERED: SODIUM CHLORIDE 0.9% 1000ML 1,000 ML IV STA (10:38)
[2021-04-14] MEDS ORDERED: CEFEPIME HCL 1 GM VIAL IV STA (10:38)
[2021-04-14 11:09] LABS: BASOPHILS # (AUTO) 0.1 (0.0-0.1); BASOPHILS % 0.4 % (0.0-1.0); EOSINOPHILS # (AUTO) 0.1 (0.0-0.4); EOSINOPHILS % 0.3 % (0.0-6.0); HEMATOCRIT 24.3 % (38.2-49.6); HEMOGLOBIN 7.4 g/dL (14.0-18.0); LYMPHOCYTES # (AUTO) 1.6 (1.0-3.2); LYMPHOCYTES % 11.1 % (18.0-39.1); MEAN CORPUSCULAR HEMOGLOBIN 21.3 pg (28-32); MEAN CORPUSCULAR HGB CONC 30.5 g/dL (31-35); MONOCYTES # (AUTO) 1.6 (0.2-0.8); NEUTROPHILS # (AUTO) 11.3 (2.1-6.9); NEUTROPHILS % 76.5 % (38.7-80.0); PLATELET COUNT 564 x10e3/uL (140-360); RED BLOOD COUNT 3.47 x10e6/uL (4.3-5.7); RED CELL DISTRIBUTION WIDTH 18.1 % (11.7-14.4)
[2021-04-14 11:16] LABS: ALANINE AMINOTRANSFERASE 35 IU/L (0-55); ALBUMIN 3.1 g/dL (3.5-5.0); ALBUMIN/GLOBULIN RATIO 0.7 (0.8-2.0); ALKALINE PHOSPHATASE 94 IU/L (40-150); ANION GAP 17.4 mmol/L (8-16); BLOOD UREA NITROGEN 12 mg/dL (7-26); BUN/CREATININE RATIO 14 (6-25); CARBON DIOXIDE 23 mmol/L (22-29); CHLORIDE 103 mmol/L (98-107); CREATINE KINASE 31 IU/L (30-200); CREATININE, SERUM 0.84 mg/dL (0.72-1.25); EST GLOMERULAR FILTRATION RATE > 60 ML/MIN (60-); GLUCOSE 139 mg/dL (74-118); POTASSIUM 3.4 mmol/L (3.5-5.1); SODIUM 140 mmol/L (136-145)
[2021-04-14] MEDS: CEFEPIME HCL 1GM 1 GM in SODIUM CHLORIDE 0.9% 50ML 50 ML IV SCH ×2 (11:16→11:45)
[2021-04-14] MEDS ORDERED: AMIODARONE 900MG 500 ML IV ONE ×2 (11:28→12:45)
[2021-04-14] MEDS ORDERED: AMIODARONE HCL 150MG 100 ML ONE (11:28)
[2021-04-14 11:38] LABS: CALCIUM 9.4 mg/dL (8.4-10.2)
[2021-04-14] MEDS ORDERED: ASPIRIN 81 MG CHEW TAB PO ONE (12:00)
[2021-04-14] MEDS ORDERED: SODIUM CHLORIDE FLUSH 10 ML SYR ONE (12:07)
[2021-04-14] MEDS ORDERED: AMIODARONE ONE (12:07)
[2021-04-14 12:09] LABS: CLARITY,URINE CLOUDY (CLEAR); COLOR,URINE YELLOW (YELLOW); KETONES,URINE NEGATIVE (NEGATIVE); LEUKOCYTE ESTERASE ,URINE 1+ (NEGATIVE); NITRITE,URINE POSITIVE (NEGATIVE); PROTEIN,URINE DIPSTICK 2+ (NEGATIVE); URINE UROBILINOGEN 0.2 mg/dL (0.2 - 1)
[2021-04-14] MEDS ORDERED: ACETAMINOPHEN 325 MG TAB PO ONE (12:30)
[2021-04-14] MEDS ORDERED: AMIODARONE HCL 100 ML IV ONE (12:45)
[2021-04-14] MEDS ORDERED: AMIODARONE HCL 150 MG/100 ML BAG IV ONE (12:45)
[2021-04-14 12:47] LABS: WBC,URINE (MAN) >50 /HPF (0-5)
[2021-04-14 12:48] LABS: BACTERIA,URINE MANY /HPF; EPITHELIAL CELLS,URINE FEW /LPF; MUCUS,URINE FEW (RARE); RBC,URINE >50 /HPF (0-5)
[2021-04-14] MEDS: IPRATROPIUM BROMIDE 0.02% 2.5 ML NEB NEB SCH ×2 (15:15→19:00)
[2021-04-14 16:52] LABS: ABG PCO2 30 mmHg (35-45); ABG PH 7.47 (7.35-7.45)
[2021-04-14 16:53] LABS: ABG HCO3 22 mmol/L (22-26); ABG PO2 132 mmHg (80-105); ABG TCO2 23
[2021-04-14] MEDS ORDERED: DEXTROSE 50% SYRINGE 50 ML IV PRN (17:45)
[2021-04-14 18:54] LABS: CREATINE KINASE MB 0.7 ng/mL (0-5.0)
[2021-04-14] MEDS ORDERED: POTASSIUM CHLORIDE 20MEQ/100ML 200 ML IV ONE (20:45)
[2021-04-14] MEDS: INSULIN LISPRO 100 UNIT/1 ML 3ML VIAL SQ SCH (21:00)
[2021-04-14] MEDS: PREGABALIN 50 MG CAP PO SCH (21:56)
[2021-04-14] MEDS: APIXAB 2.5 MG TABLET PO SCH (21:56)
[2021-04-15] VITALS (18 sets, daily range): BP systolic 126–166; BP diastolic 54–72
[2021-04-15] MEDS: IPRATROPIUM BROMIDE 0.02% 2.5 ML NEB NEB SCH ×5 (01:05→23:48)
[2021-04-15 05:13] LABS: BASOPHILS # (AUTO) 0.1 (0.0-0.1); BASOPHILS % 0.6 % (0.0-1.0); EOSINOPHILS # (AUTO) 0.2 (0.0-0.4); EOSINOPHILS % 1.6 % (0.0-6.0); LYMPHOCYTES # (AUTO) 1.4 (1.0-3.2); MEAN CORPUSCULAR HEMOGLOBIN 21.4 pg (28-32); MEAN CORPUSCULAR HGB CONC 30.2 g/dL (31-35); MEAN CORPUSCULAR VOLUME 70.8 fL (81-99); MONOCYTES # (AUTO) 1.2 (0.2-0.8); MONOCYTES % 11.3 % (4.4-11.3); NEUTROPHILS # (AUTO) 7.9 (2.1-6.9); NEUTROPHILS % 72.7 % (38.7-80.0); PLATELET COUNT 417 x10e3/uL (140-360); RED BLOOD COUNT 2.71 x10e6/uL (4.3-5.7); RED CELL DISTRIBUTION WIDTH 18.2 % (11.7-14.4)
[2021-04-15 05:39] LABS: HEMATOCRIT 19.2 % (38.2-49.6); HEMOGLOBIN 5.8 g/dL (14.0-18.0)
[2021-04-15 05:51] LABS: ALANINE AMINOTRANSFERASE 32 IU/L (0-55); ALBUMIN 2.5 g/dL (3.5-5.0); ALBUMIN/GLOBULIN RATIO 0.7 (0.8-2.0); ALKALINE PHOSPHATASE 72 IU/L (40-150); ANION GAP 12.7 mmol/L (8-16); BLOOD UREA NITROGEN 12 mg/dL (7-26); BUN/CREATININE RATIO 16 (6-25); CALCIUM 8.3 mg/dL (8.4-10.2); CARBON DIOXIDE 22 mmol/L (22-29); CHLORIDE 105 mmol/L (98-107); CREATININE, SERUM 0.77 mg/dL (0.72-1.25); EST GLOMERULAR FILTRATION RATE > 60 ML/MIN (60-); GLUCOSE 138 mg/dL (74-118); POTASSIUM 3.7 mmol/L (3.5-5.1); SODIUM 136 mmol/L (136-145)
[2021-04-15] MEDS ORDERED: SODIUM CHLORIDE 0.9% 250ML 250 ML IV ONE (06:00)
[2021-04-15 06:33] LABS: CREATINE KINASE MB 0.5 ng/mL (0-5.0)
[2021-04-15] MEDS: INSULIN LISPRO 100 UNIT/1 ML 3ML VIAL SQ SCH ×4 (07:30→21:09)
[2021-04-15] MEDS: DOCUSATE SODIUM 100 MG CAP PO SCH ×2 (08:20→17:00)
[2021-04-15] MEDS: FAMOTIDINE 20 MG TAB PO SCH (08:20)
[2021-04-15] MEDS: CEFEPIME HCL 1GM 1 GM in SODIUM CHLORIDE 0.9% 50ML 50 ML IV SCH (09:07)
[2021-04-15] MEDS: METOPROLOL TARTRATE 25 MG TAB PO SCH (17:00)
[2021-04-15] MEDS: APIXAB 2.5 MG TABLET PO SCH (20:59)
[2021-04-15] MEDS: PREGABALIN 50 MG CAP PO SCH (20:59)
[2021-04-15] MEDS ORDERED: ACETAMINOPHEN 325 MG TAB PO PRN (21:45)
[2021-04-15 23:05] LABS: HEMATOCRIT 30.7 % (38.2-49.6); HEMOGLOBIN 9.8 g/dL (14.0-18.0); MEAN CORPUSCULAR HEMOGLOBIN 24.6 pg (28-32); MEAN CORPUSCULAR HGB CONC 31.9 g/dL (31-35); MEAN CORPUSCULAR VOLUME 77.1 fL (81-99); PLATELET COUNT 407 x10e3/uL (140-360); RED BLOOD COUNT 3.98 x10e6/uL (4.3-5.7)
[2021-04-16] VITALS (17 sets, daily range): BP systolic 135–168; BP diastolic 54–81
[2021-04-16] MEDS: LORAZEPAM INJ 2 MG/ML VIAL IV PRN ×2 (06:00→13:26)
[2021-04-16 06:33] LABS: BASOPHILS # (AUTO) 0.1 (0.0-0.1); BASOPHILS % 0.9 % (0.0-1.0); EOSINOPHILS # (AUTO) 0.2 (0.0-0.4); EOSINOPHILS % 1.8 % (0.0-6.0); HEMATOCRIT 31.6 % (38.2-49.6); HEMOGLOBIN 9.9 g/dL (14.0-18.0); LYMPHOCYTES # (AUTO) 1.6 (1.0-3.2); LYMPHOCYTES % 14.9 % (18.0-39.1); MEAN CORPUSCULAR HEMOGLOBIN 23.9 pg (28-32); MEAN CORPUSCULAR HGB CONC 31.3 g/dL (31-35); MEAN CORPUSCULAR VOLUME 76.3 fL (81-99); MONOCYTES # (AUTO) 1.2 (0.2-0.8); MONOCYTES % 11.4 % (4.4-11.3); NEUTROPHILS # (AUTO) 7.4 (2.1-6.9); NEUTROPHILS % 70.5 % (38.7-80.0); PLATELET COUNT 391 x10e3/uL (140-360); RED BLOOD COUNT 4.14 x10e6/uL (4.3-5.7); RED CELL DISTRIBUTION WIDTH 21.7 % (11.7-14.4)
[2021-04-16 06:56] LABS: ANION GAP 15.1 mmol/L (8-16); BLOOD UREA NITROGEN 9 mg/dL (7-26); BUN/CREATININE RATIO 12 (6-25); CALCIUM 8.5 mg/dL (8.4-10.2); CARBON DIOXIDE 21 mmol/L (22-29); CHLORIDE 107 mmol/L (98-107); CREATININE, SERUM 0.74 mg/dL (0.72-1.25); EST GLOMERULAR FILTRATION RATE > 60 ML/MIN (60-); GLUCOSE 111 mg/dL (74-118); POTASSIUM 3.1 mmol/L (3.5-5.1); SODIUM 140 mmol/L (136-145)
[2021-04-16] MEDS: IPRATROPIUM BROMIDE 0.02% 2.5 ML NEB NEB SCH ×4 (07:15→23:15)
[2021-04-16] MEDS: INSULIN LISPRO 100 UNIT/1 ML 3ML VIAL SQ SCH ×4 (07:30→21:00)
[2021-04-16] MEDS: CEFEPIME HCL 1GM 1 GM in SODIUM CHLORIDE 0.9% 50ML 50 ML IV SCH (08:08)
[2021-04-16] MEDS: DOCUSATE SODIUM 100 MG CAP PO SCH ×2 (08:08→17:31)
[2021-04-16] MEDS: METOPROLOL TARTRATE 25 MG TAB PO SCH ×2 (08:08→17:31)
[2021-04-16] MEDS: FAMOTIDINE 20 MG TAB PO SCH (08:08)
[2021-04-16] MEDS ORDERED: POTASSIUM CHLORIDE 20 MEQ TAB CR PO STA (10:27)
[2021-04-16] MEDS: PIPERACILLIN/TAZOBAC 3.375 GM in SODIUM CHLORIDE 0.9% 50ML 50 ML IV SCH ×2 (13:16→21:53)
[2021-04-16] MEDS ORDERED: LORAZEPAM INJ 2 MG/ML VIAL IV PRN (19:30)
[2021-04-16] MEDS: PREGABALIN 50 MG CAP PO SCH ×2 (21:00→21:53)
[2021-04-16] MEDS: APIXAB 2.5 MG TABLET PO SCH ×2 (21:00→21:53)
[2021-04-16] MEDS ORDERED: SODIUM CHLORIDE 0.9% 250ML 250 ML ONE (22:14)
[2021-04-17] VITALS (11 sets, daily range): BP systolic 143–171; BP diastolic 56–93
[2021-04-17] MEDS: PIPERACILLIN/TAZOBAC 3.375 GM in SODIUM CHLORIDE 0.9% 50ML 50 ML IV SCH ×3 (06:27→21:35)
[2021-04-17 07:05] LABS: BASOPHILS # (AUTO) 0.1 (0.0-0.1); BASOPHILS % 1.3 % (0.0-1.0); EOSINOPHILS # (AUTO) 0.4 (0.0-0.4); EOSINOPHILS % 5.4 % (0.0-6.0); HEMATOCRIT 33.5 % (38.2-49.6); HEMOGLOBIN 10.5 g/dL (14.0-18.0); LYMPHOCYTES # (AUTO) 1.2 (1.0-3.2); MEAN CORPUSCULAR HEMOGLOBIN 23.9 pg (28-32); MEAN CORPUSCULAR HGB CONC 31.3 g/dL (31-35); MEAN CORPUSCULAR VOLUME 76.3 fL (81-99); MONOCYTES # (AUTO) 0.8 (0.2-0.8); MONOCYTES % 10.3 % (4.4-11.3); NEUTROPHILS # (AUTO) 5.3 (2.1-6.9); NEUTROPHILS % 67.2 % (38.7-80.0); PLATELET COUNT 434 x10e3/uL (140-360); RED BLOOD COUNT 4.39 x10e6/uL (4.3-5.7); RED CELL DISTRIBUTION WIDTH 21.4 % (11.7-14.4)
[2021-04-17 07:26] LABS: ALANINE AMINOTRANSFERASE 38 IU/L (0-55); ALBUMIN 2.6 g/dL (3.5-5.0); ALBUMIN/GLOBULIN RATIO 0.6 (0.8-2.0); ALKALINE PHOSPHATASE 77 IU/L (40-150); BLOOD UREA NITROGEN 8 mg/dL (7-26); BUN/CREATININE RATIO 11 (6-25); CALCIUM 8.6 mg/dL (8.4-10.2); CARBON DIOXIDE 21 mmol/L (22-29); CHLORIDE 108 mmol/L (98-107); EST GLOMERULAR FILTRATION RATE > 60 ML/MIN (60-); GLUCOSE 128 mg/dL (74-118); SODIUM 141 mmol/L (136-145)
[2021-04-17] MEDS: INSULIN LISPRO 100 UNIT/1 ML 3ML VIAL SQ SCH ×4 (07:30→20:50)
[2021-04-17] MEDS: IPRATROPIUM BROMIDE 0.02% 2.5 ML NEB NEB SCH ×3 (07:40→19:44)
[2021-04-17] MEDS: POTASSIUM CHLORIDE 20 MEQ TAB CR PO PRN (08:49)
[2021-04-17] MEDS: METOPROLOL TARTRATE 25 MG TAB PO SCH ×2 (09:00→16:39)
[2021-04-17] MEDS: FAMOTIDINE 20 MG TAB PO SCH (09:00)
[2021-04-17] MEDS: DOCUSATE SODIUM 100 MG CAP PO SCH ×2 (09:00→16:39)
[2021-04-17] MEDS ORDERED: POTASSIUM CHLORIDE 20 MEQ TAB CR PO ONE (09:10)
[2021-04-17] MEDS ORDERED: SODIUM CHLORIDE 0.9% 100 ML ONE (12:56)
[2021-04-17] MEDS ORDERED: IOPAMIDOL 370 MG/ML 200 ML INFUS..BTL INJ ONE (12:56)
[2021-04-17] MEDS: APIXABAN 5 MG TABLET PO SCH (16:39)
[2021-04-17] MEDS: ATORVASTATIN 20 MG TAB PO SCH (21:35)
[2021-04-17] MEDS: PREGABALIN 50 MG CAP PO SCH (21:35)
[2021-04-18] VITALS (7 sets, daily range): BP systolic 106–176; BP diastolic 57–90
[2021-04-18] MEDS: IPRATROPIUM BROMIDE 0.02% 2.5 ML NEB NEB SCH ×4 (01:38→19:22)
[2021-04-18] MEDS: PIPERACILLIN/TAZOBAC 3.375 GM in SODIUM CHLORIDE 0.9% 50ML 50 ML IV SCH ×3 (05:52→21:58)
[2021-04-18] MEDS: INSULIN LISPRO 100 UNIT/1 ML 3ML VIAL SQ SCH ×4 (07:30→20:52)
[2021-04-18] MEDS: APIXABAN 5 MG TABLET PO SCH ×2 (09:43→17:50)
[2021-04-18] MEDS: DOCUSATE SODIUM 100 MG CAP PO SCH ×2 (09:43→17:50)
[2021-04-18] MEDS: CLOPIDOGREL BISULFATE 75 MG TAB PO SCH (09:44)
[2021-04-18] MEDS: MUPIROCIN 2% OINT 22 GM TUBE TOP SCH (09:44)
[2021-04-18] MEDS: FAMOTIDINE 20 MG TAB PO SCH (09:44)
[2021-04-18] MEDS: METOPROLOL TARTRATE 25 MG TAB PO SCH ×2 (09:44→17:50)
[2021-04-18] MEDS: AMIODARONE HCL 200 MG TAB PO SCH ×2 (13:22→17:50)
[2021-04-18] MEDS: POTASSIUM CHLORIDE 20 MEQ TAB CR PO PRN (13:23)
[2021-04-18] MEDS ORDERED: METOPROLOL TARTRATE 25 MG TAB PO SCH (17:00)
[2021-04-18] MEDS: ATORVASTATIN 20 MG TAB PO SCH (21:58)
[2021-04-18] MEDS: PREGABALIN 50 MG CAP PO SCH (21:58)
[2021-04-19 00:39] VITALS: BP 155/67
[2021-04-19] MEDS: IPRATROPIUM BROMIDE 0.02% 2.5 ML NEB NEB SCH ×3 (00:50→12:46)
[2021-04-19 05:19] VITALS: BP 181/73
[2021-04-19 05:36] LABS: BASOPHILS # (AUTO) 0.1 (0.0-0.1); BASOPHILS % 1.3 % (0.0-1.0); EOSINOPHILS # (AUTO) 0.6 (0.0-0.4); EOSINOPHILS % 7.9 % (0.0-6.0); HEMATOCRIT 31.6 % (38.2-49.6); HEMOGLOBIN 9.8 g/dL (14.0-18.0); LYMPHOCYTES # (AUTO) 1.4 (1.0-3.2); LYMPHOCYTES % 17.7 % (18.0-39.1); MEAN CORPUSCULAR HEMOGLOBIN 23.8 pg (28-32); MEAN CORPUSCULAR VOLUME 76.9 fL (81-99); MONOCYTES # (AUTO) 0.9 (0.2-0.8); MONOCYTES % 10.8 % (4.4-11.3); NEUTROPHILS # (AUTO) 4.9 (2.1-6.9); NEUTROPHILS % 61.5 % (38.7-80.0); PLATELET COUNT 453 x10e3/uL (140-360); RED BLOOD COUNT 4.11 x10e6/uL (4.3-5.7); RED CELL DISTRIBUTION WIDTH 21.8 % (11.7-14.4)
[2021-04-19 06:01] LABS: ALANINE AMINOTRANSFERASE 37 IU/L (0-55); ALBUMIN 2.7 g/dL (3.5-5.0); ALBUMIN/GLOBULIN RATIO 0.7 (0.8-2.0); ALKALINE PHOSPHATASE 82 IU/L (40-150); ANION GAP 12.8 mmol/L (8-16); BLOOD UREA NITROGEN 15 mg/dL (7-26); BUN/CREATININE RATIO 21 (6-25); CALCIUM 8.9 mg/dL (8.4-10.2); CARBON DIOXIDE 21 mmol/L (22-29); CHLORIDE 111 mmol/L (98-107); EST GLOMERULAR FILTRATION RATE > 60 ML/MIN (60-); GLUCOSE 125 mg/dL (74-118); MAGNESIUM 2.2 MG/DL (1.3-2.1); POTASSIUM 3.8 mmol/L (3.5-5.1); SODIUM 141 mmol/L (136-145)
[2021-04-19] MEDS: PIPERACILLIN/TAZOBAC 3.375 GM in SODIUM CHLORIDE 0.9% 50ML 50 ML IV SCH ×2 (06:19→13:12)
[2021-04-19] MEDS: INSULIN LISPRO 100 UNIT/1 ML 3ML VIAL SQ SCH ×3 (07:30→15:39)
[2021-04-19 07:50] VITALS: BP 163/60
[2021-04-19 08:02] VITALS: BP 163/60
[2021-04-19] MEDS: DOCUSATE SODIUM 100 MG CAP PO SCH ×2 (08:53→16:50)
[2021-04-19] MEDS: AMIODARONE HCL 200 MG TAB PO SCH ×2 (08:54→16:50)
[2021-04-19] MEDS: APIXABAN 5 MG TABLET PO SCH ×2 (08:54→16:50)
[2021-04-19] MEDS: FAMOTIDINE 20 MG TAB PO SCH (08:55)
[2021-04-19] MEDS: CLOPIDOGREL BISULFATE 75 MG TAB PO SCH (08:55)
[2021-04-19] MEDS: METOPROLOL TARTRATE 25 MG TAB PO SCH ×2 (08:55→16:51)
[2021-04-19] MEDS: MUPIROCIN 2% OINT 22 GM TUBE TOP SCH (08:56)
[2021-04-19 11:56] VITALS: BP 160/63
[2021-04-19 15:57] VITALS: BP 149/64
[2021-04-19] MEDS ORDERED: ATROVENT HFA12.9 GM INH (17:18)
[2021-04-19] MEDS ORDERED: PLAVIX75 MG PO (17:19)
[2021-04-19] MEDS ORDERED: ZOSYN 3.373.375 GM/5 IVP (17:19)
[2021-04-19] MEDS ORDERED: LIPITOR20 MG PO (17:19)
[2021-04-19] MEDS ORDERED: ELIQUIS5 MG PO (17:19)
[2021-04-19] MEDS ORDERED: AMIODARONE HCL100 MG PO (17:20)
[2021-04-19] MEDS ORDERED: AMIODARONE HCL200 MG PO (17:20)
[2021-04-19] MEDS ORDERED: METOPROLOL TART25 MG PO (17:21)
[2021-04-19] MEDS ORDERED: TYLENOL325 MG PO (17:21)
[2021-04-19] MEDS ORDERED: POTASSIUM CHLO20 ME2 PO (17:24)
== END 2021-04-19 19:20 | DRG 871 ==
LOC: ER 10:17 → ERHOLD 13:14 → ICU 13:45 → MED/SURG2 04-17 04:54
PROVIDERS: ADMIT Internal Medicine; ATTEND Internal Medicine
PROC: 02HV33Z Insertion of Infusion Device into Superior Vena Cava, Percutaneous Approach (ICD-10-PCS; principal; 2021-04-14)
PROC: 30243N1 Transfusion of Nonautologous Red Blood Cells into Central Vein, Percutaneous Approach (ICD-10-PCS; 2021-04-15)
DX: A41.9 Sepsis, unspecified organism (principal); J96.01 Acute respiratory failure with hypoxia; G92 Toxic encephalopathy; I47.2 Ventricular tachycardia; N39.0 Urinary tract infection, site not specified; I10 Essential (primary) hypertension; E11.9 Type 2 diabetes mellitus without complications; I25.2 Old myocardial infarction; K21.9 Gastro-esophageal reflux disease without esophagitis; E78.5 Hyperlipidemia, unspecified; Z89.612 Acquired absence of left leg above knee; F17.200 Nicotine dependence, unspecified, uncomplicated; I73.9 Peripheral vascular disease, unspecified; D64.9 Anemia, unspecified; Z20.822 Contact with and (suspected) exposure to COVID-19; Z86.73 Personal history of transient ischemic attack (TIA), and cerebral infarction without residual deficits; I48.0 Paroxysmal atrial fibrillation; I65.29 Occlusion and stenosis of unspecified carotid artery; B96.5 Pseudomonas (aeruginosa) (mallei) (pseudomallei) as the cause of diseases classified elsewhere; Z88.5 Allergy status to narcotic agent; Z88.2 Allergy status to sulfonamides
CPT/HCPCS: 36415; 36569; 36600; 51700; 70450; 70496; 70498; 71045; 80048; 80053; 81001; 82140; 82550; 82553; 82805; 82948; 83605; 83735; 84443; 84484; 85007; 85025; 85027; 86850; 86870; 86880; 86900; 86905; 86920; 86922; 87040; 87086; 87186; 93005; 93306; 94640; 97139; 99001; 99251; 99285; J0692; J2060; J2543; J3480; J7030; J7050; P9016; Q9967; U0002

== ENCOUNTER → 2021-06-08 | Day surgery (SDC) | payer MEDICARE ==
[2021-06-07 13:04] LABS: BASOPHILS # (AUTO) 0.1 (0.0-0.1); BASOPHILS % 2.2 % (0.0-1.0); EOSINOPHILS # (AUTO) 0.8 (0.0-0.4); EOSINOPHILS % 14.3 % (0.0-6.0); HEMOGLOBIN 10.6 g/dL (14.0-18.0); LYMPHOCYTES # (AUTO) 1.4 (1.0-3.2); LYMPHOCYTES % 26.1 % (18.0-39.1); MEAN CORPUSCULAR HEMOGLOBIN 27.1 pg (28-32); MEAN CORPUSCULAR HGB CONC 30.3 g/dL (31-35); MEAN CORPUSCULAR VOLUME 89.5 fL (81-99); MONOCYTES # (AUTO) 0.5 (0.2-0.8); MONOCYTES % 8.4 % (4.4-11.3); NEUTROPHILS # (AUTO) 2.7 (2.1-6.9); NEUTROPHILS % 48.8 % (38.7-80.0); PLATELET COUNT 300 x10e3/uL (140-360); RED BLOOD COUNT 3.91 x10e6/uL (4.3-5.7); RED CELL DISTRIBUTION WIDTH 23.4 % (11.7-14.4)
[2021-06-07 13:11] LABS: ANION GAP 10.8 mmol/L (8-16); CALCIUM 8.8 mg/dL (8.4-10.2); CREATININE, SERUM 0.94 mg/dL (0.72-1.25); POTASSIUM 3.8 mmol/L (3.5-5.1)
[~2021-06-08] MED LIST changes: +AMIODARONE HCL100 MG PO; +AMIODARONE HCL200 MG PO; +ATROVENT HFA12.9 GM INH; +DEXAMETHASONE SOD PHOS INJ 4 MG/ML VIAL ONE; +ELIQUIS5 MG PO; +EPHEDRINE SULFATE INJ 50 MG/ML VIAL ONE; +FENTANYL CITRATE/PF 100MCG/2 ML INJ ONE; +GLYCOPYRROLATE INJ 0.2 MG/ML VIAL ONE; +LIDOCAINE HCL 2% LOCAL INJ 5 ML SDV VIAL INJ ONE; +LIPITOR20 MG PO; +METOPROLOL TART25 MG PO; +MOBIC7.5 MG PO; +ONDANSETRON HCL INJ 2MG/ML 2ML 2 MG/ML VIAL ONE; +PANTOPRAZOLE SO40 MG PO; +PLAVIX75 MG PO; +POTASSIUM CHLO20 ME2 PO; +POVIDONE IODINE 0.05% 0.05 % ML PO ONE; +PROPOFOL IV EMULSION 10 MG/ML 20 ML VIAL ONE; +SEVOFLURANE INHAL SOLN 250 ML PEN BTL ONE; +SODIUM CHLORIDE 0.9% 50ML 100 ML ONE; +TRAMADOL HCL 50 MG TAB ONE; +TYLENOL325 MG PO; +ULTRACET TABLE1 EACH PO; +ZOSYN 3.373.375 GM/5 IVP
[2021-06-08 08:42] VITALS: BP 151/75
== END | disposition home or self-care (01) ==
LOC: OR 05:21
PROVIDERS: ATTEND Surgery
DX: L89.899 Pressure ulcer of other site, unspecified stage (principal); Z89.512 Acquired absence of left leg below knee; G81.90 Hemiplegia, unspecified affecting unspecified side; I10 Essential (primary) hypertension; E78.00 Pure hypercholesterolemia, unspecified; I25.2 Old myocardial infarction; E11.9 Type 2 diabetes mellitus without complications; K21.9 Gastro-esophageal reflux disease without esophagitis; F17.210 Nicotine dependence, cigarettes, uncomplicated; Z88.6 Allergy status to analgesic agent; Z88.2 Allergy status to sulfonamides; Z01.810 Encounter for preprocedural cardiovascular examination; Z01.812 Encounter for preprocedural laboratory examination; Z20.822 Contact with and (suspected) exposure to COVID-19; Z79.02 Long term (current) use of antithrombotics/antiplatelets; Z86.73 Personal history of transient ischemic attack (TIA), and cerebral infarction without residual deficits; Z86.16 Personal history of COVID-19
CPT/HCPCS: 27596; 36415 ×2; 80048; 82948; 85025; 88304; 88311; 93005; J0690; J1100; J2001; J2405; J2704; J3010; U0002

== ENCOUNTER 2021-06-26 19:50 | Emergency (ER) | payer MEDICARE ==
[~2021-06-26] VITALS: Ht 167.6 cm; Wt 71.2 kg
[~2021-06-26 19:50] MED LIST changes: -DEXAMETHASONE SOD PHOS INJ 4 MG/ML VIAL ONE; -EPHEDRINE SULFATE INJ 50 MG/ML VIAL ONE; -FENTANYL CITRATE/PF 100MCG/2 ML INJ ONE; -GLYCOPYRROLATE INJ 0.2 MG/ML VIAL ONE; -LIDOCAINE HCL 2% LOCAL INJ 5 ML SDV VIAL INJ ONE; -ONDANSETRON HCL INJ 2MG/ML 2ML 2 MG/ML VIAL ONE; -POVIDONE IODINE 0.05% 0.05 % ML PO ONE; -PROPOFOL IV EMULSION 10 MG/ML 20 ML VIAL ONE; -SEVOFLURANE INHAL SOLN 250 ML PEN BTL ONE; -SODIUM CHLORIDE 0.9% 50ML 100 ML ONE; -TRAMADOL HCL 50 MG TAB ONE
[2021-06-26 21:46] LABS: BASOPHILS # (AUTO) 0.1 (0.0-0.1); BASOPHILS % 0.6 % (0.0-1.0); EOSINOPHILS # (AUTO) 0.4 (0.0-0.4); HEMATOCRIT 33.6 % (38.2-49.6); HEMOGLOBIN 10.7 g/dL (14.0-18.0); LYMPHOCYTES # (AUTO) 1.9 (1.0-3.2); LYMPHOCYTES % 24.2 % (18.0-39.1); MEAN CORPUSCULAR HGB CONC 31.8 g/dL (31-35); MONOCYTES # (AUTO) 1.1 (0.2-0.8); MONOCYTES % 13.8 % (4.4-11.3); NEUTROPHILS # (AUTO) 4.4 (2.1-6.9); NEUTROPHILS % 55.2 % (38.7-80.0); PLATELET COUNT 341 x10e3/uL (140-360); RED BLOOD COUNT 3.82 x10e6/uL (4.3-5.7); RED CELL DISTRIBUTION WIDTH 20.8 % (11.7-14.4)
[2021-06-26 21:48] LABS: CLARITY,URINE SL CLOUDY (CLEAR); COLOR,URINE YELLOW (YELLOW); KETONES,URINE NEGATIVE (NEGATIVE); LEUKOCYTE ESTERASE ,URINE MODERATE (NEGATIVE); NITRITE,URINE POSITIVE (NEGATIVE); PROTEIN,URINE DIPSTICK 2+ (NEGATIVE); URINE UROBILINOGEN 0.2 mg/dL (0.2 - 1)
[2021-06-26 21:57] LABS: ANION GAP 15.7 mmol/L (8-16); CALCIUM 9.1 mg/dL (8.4-10.2); CREATININE, SERUM 0.87 mg/dL (0.72-1.25); POTASSIUM 3.7 mmol/L (3.5-5.1)
[2021-06-26 21:58] LABS: WBC,URINE (MAN) 21-50 /HPF (0-5)
[2021-06-26 21:59] LABS: BACTERIA,URINE MANY /HPF
[2021-06-26] MEDS ORDERED: MONUROL3 GM PO (22:27)
== END 2021-06-26 23:30 | disposition home or self-care (01) ==
LOC: ER 21:19
DX: R10.30 Lower abdominal pain, unspecified (principal); N39.0 Urinary tract infection, site not specified; E11.65 Type 2 diabetes mellitus with hyperglycemia; Z89.612 Acquired absence of left leg above knee; Z86.73 Personal history of transient ischemic attack (TIA), and cerebral infarction without residual deficits; F17.210 Nicotine dependence, cigarettes, uncomplicated
CPT/HCPCS: 36415; 80048; 81001; 85025; 87086; 87186; 99283